=== PATIENT | male | born 1960 | race Two or more races ===

== ENCOUNTER 2021-10-05 15:19 | Emergency (ER) | payer MEDICARE, MEDICAID ==
[~2021-10-05] VITALS: Ht 170.2 cm; Wt 106.6 kg
[2021-10-05 16:00] LABS: Basophils # (auto) 0 10 ^3/uL (0-0.2); Basophils % (auto) 0.3 % (0.0-2.0); Eosinophils # (auto) 0.2 10 ^3/uL (0-0.8); Eosinophils % (auto) 1.8 % (0.0-7.0); Hematocrit 35.6 % (41.0-53.0); Hemoglobin 11.6 g/dL (13.5-17.5); Lymphocytes # (auto) 1.6 10 ^3/uL (0.4-5.4); Lymphocytes % (auto) 15.9 % (10.0-50.0); Mean Corpuscular Hemoglobin 29.5 pg (28.0-32.0); Mean Corpuscular Hgb Conc. 32.6 g/dL (32.0-36.0); Mean Corpuscular Volume 90.5 fL (80.0-100.0); Monocytes # (auto) 1.1 10 ^3/uL (0-1.3); Monocytes % (auto) 10.2 % (0.0-12.0); Neutrophils # (auto) 7.4 10 ^3/uL (1.6-8.6); Neutrophils % (auto) 71.8 % (37.0-80.0); Red Blood Cells 3.93 10^6/uL (4.5-5.90); Red Cell Distribution Width 15.1 % (11.8-14.3); White Blood Cell 10.4 10^3/uL (4.4-10.8)
[2021-10-05 16:38] LABS: Calcium 8.1 mg/dL (8.5-10.1)
[2021-10-05 16:42] LABS: BUN/Creatinine Ratio 13.9; Bilirubin, Total 0.2 mg/dL (0.2-1.0); Total Protein 6.7 g/dL (6.4-8.2)
[2021-10-05 17:00] LABS: Potassium 5.8 mmol/L (3.5-5.1)
[2021-10-05] MEDS ORDERED: SODIUM CHLORIDE 0.9% 1,000 ML IV ONE (20:30)
[2021-10-05] MEDS ORDERED: ONDANSETRON HCL 4 MG/2 ML VIAL IV ONE (20:30)
[2021-10-05] MEDS ORDERED: MORPHINE SULFATE 4 MG/ML SYR/VIAL IV ONE (20:30)
[2021-10-05] MEDS ORDERED: KETOROLAC TROMETH 30 MG/ML 1ML VIAL IV ONE (20:30)
[2021-10-05 23:44] VITALS: BP 141/74
== END 2021-10-05 23:45 | disposition home or self-care (01) ==
LOC: ER 15:19
DX: N20.0 Calculus of kidney (principal)
CPT/HCPCS: 36415; 74176; 80053; 85025; 96361; 96374; 96375; 99284; J1885; J2270; J2405; J7030

== ENCOUNTER 2021-10-08 08:44 | Inpatient (IN) | payer MEDICARE, MEDICAID ==
[~2021-10-08] VITALS: Ht 170.2 cm; Wt 112.3 kg
[2021-10-08] MEDS ORDERED: cloNIDine HCL 0.1 MG TAB PO ONE (09:15)
[2021-10-08 09:35] LABS: Basophils # (auto) 0.1 10 ^3/uL (0-0.2); Basophils % (auto) 0.6 % (0.0-2.0); Eosinophils # (auto) 0.1 10 ^3/uL (0-0.8); Eosinophils % (auto) 0.4 % (0.0-7.0); Hematocrit 34.8 % (41.0-53.0); Hemoglobin 11.3 g/dL (13.5-17.5); Lymphocytes # (auto) 0.7 10 ^3/uL (0.4-5.4); Mean Corpuscular Hemoglobin 29.8 pg (28.0-32.0); Mean Corpuscular Hgb Conc. 32.6 g/dL (32.0-36.0); Mean Corpuscular Volume 91.4 fL (80.0-100.0); Monocytes # (auto) 0.9 10 ^3/uL (0-1.3); Monocytes % (auto) 6.7 % (0.0-12.0); Neutrophils # (auto) 11.6 10 ^3/uL (1.6-8.6); Neutrophils % (auto) 87.3 % (37.0-80.0); Red Blood Cells 3.81 10^6/uL (4.5-5.90); Red Cell Distribution Width 14.9 % (11.8-14.3); White Blood Cell 13.3 10^3/uL (4.4-10.8)
[2021-10-08 09:54] LABS: Albumin 2.8 g/dL (3.4-5.0); Calcium 8.3 mg/dL (8.5-10.1)
[2021-10-08 09:57] LABS: BUN/Creatinine Ratio 12.3; Bilirubin, Total 0.4 mg/dL (0.2-1.0); Total Protein 7.2 g/dL (6.4-8.2)
[2021-10-08 10:11] LABS: Potassium 6.3 mmol/L (3.5-5.1)
[2021-10-08] MEDS ORDERED: ALBUTEROL SULF 2.5 MG/0.5ML(0.5%) NEB SOLN NEB ONE (10:45)
[2021-10-08] MEDS ORDERED: SODIUM ZIRCONIUM CYCL 10 GM PAK PO ONE ×2 (10:45→21:30)
[2021-10-08] MEDS ORDERED: DEXTROSE (50%) 50ML SYRG IV ONE ×2 (10:45→21:30)
[2021-10-08] MEDS ORDERED: FUROSEMIDE 20 MG/2 ML VIAL IV ONE ×2 (10:45→21:30)
[2021-10-08] MEDS ORDERED: CALCIUM GLUC 1,000mg/50ml-NS 50 ML IV ONE ×2 (10:45→21:30)
[2021-10-08] MEDS ORDERED: InsuLIN REG 1unit/0.01ml Soln (100units/ml) IV ONE ×2 (10:45→21:30)
[2021-10-08] MEDS ORDERED: SODIUM BICARBONATE 8.4% INJ 50ML SYRINGE IV ONE ×2 (10:45→21:30)
[2021-10-08] MEDS ORDERED: HYDROcodone-ACET 5/325MG TAB PO PRN (14:30)
[2021-10-08] MEDS ORDERED: MORPHINE SULFATE INJECTION 2 MG/ML SYRG IV PRN (14:30)
[2021-10-08] MEDS: amLODIPine BESYLATE 5 MG TAB PO SCH (14:30)
[2021-10-08] MEDS ORDERED: DEXTROSE (50%) 50ML SYRG IV PRN (14:30)
[2021-10-08] MEDS ORDERED: ONDANSETRON HCL 4 MG/2 ML VIAL IV PRN (14:30)
[2021-10-08] MEDS ORDERED: SODIUM BICARBONATE 50ML VIAL 50 ML in SOD CHL 0.45% 1,000 ML IV SCH (14:30)
[2021-10-08] MEDS: cefTRIAXone 1GM/50ML D5W 50 ML IV SCH (14:30)
[2021-10-08] MEDS ORDERED: ACETAMINOPHEN 500 MG TAB PO PRN (14:30)
[2021-10-08] MEDS: TAMSULOSIN HYDROCHLORIDE 0.4 MG CAP PO SCH ×2 (14:30→18:23)
[2021-10-08] MEDS ORDERED: NITROGLYCERIN 0.4 MG SL TAB SL PRN (14:30)
[2021-10-08] MEDS: SODIUM BICARBONATE 50ML VIAL 50 ML in SOD CHL 0.45% 1,000 ML IV SCH (16:45)
[2021-10-08] MEDS: ACCU-CHEK COMFORT CURVE STRIP VI SCH ×2 (17:00→22:24)
[2021-10-08] MEDS ORDERED: MANNITOL FTV 25% 12.5 GM/50 ML 50 ML IV ONE (17:30)
[2021-10-08] MEDS: InsuLIN REG 1unit/0.01ml Soln (100units/ml) SC SCH ×2 (18:01→22:30)
[2021-10-08 18:15] LABS: BUN/Creatinine Ratio 12.7; Calcium 8.2 mg/dL (8.5-10.1)
[2021-10-08 18:55] LABS: Potassium 5.7 mmol/L (3.5-5.1)
[2021-10-08] MEDS: LABETALOL HCL 5 MG/ML 4ML SYRINGE IV PRN (19:43)
[2021-10-08 20:12] LABS: Urine Bacteria FEW /hpf (None Seen); Urine Blood 1+ /uL (Negative); Urine Specific Gravity 1.011 (1.001-1.035); Urine WBC 1 /hpf (0 - 3)
[2021-10-08 20:26] LABS: Protein, Urine 162.6 mg/dL (0.0-11.9)
[2021-10-08 21:45] VITALS: BP 149/75
[2021-10-09] VITALS (7 sets, daily range): BP systolic 121–156; BP diastolic 66–104
[2021-10-09] MEDS ORDERED: SODIUM BICARBONATE 8.4% INJ 50ML SYRINGE ONE ×2 (00:02→02:46)
[2021-10-09] MEDS: SODIUM BICARBONATE 50ML VIAL 50 ML in SOD CHL 0.45% 1,000 ML IV SCH ×3 (00:39→23:18)
[2021-10-09] MEDS ORDERED: INSU70IN3 SC ×2 (04:55)
[2021-10-09] MEDS ORDERED: METO25TA5 PO (04:55)
[2021-10-09] MEDS ORDERED: ASPI-543 PO (04:55)
[2021-10-09] MEDS ORDERED: ESOM40CA39 PO (04:55)
[2021-10-09] MEDS ORDERED: HYDR50TA15 PO (04:55)
[2021-10-09] MEDS ORDERED: TERA5CAP42 PO (04:55)
[2021-10-09] MEDS ORDERED: ATOR20TA50 PO (04:55)
[2021-10-09] MEDS ORDERED: FURO1TAB31 PO (04:55)
[2021-10-09] MEDS ORDERED: ALLO100T PO (04:55)
[2021-10-09] MEDS ORDERED: SODI650T PO (04:55)
[2021-10-09] MEDS ORDERED: CHOL20007 PO (04:55)
[2021-10-09] MEDS ORDERED: PERCOT PO (04:55)
[2021-10-09 05:22] LABS: Basophils # (auto) 0.1 10 ^3/uL (0-0.2); Basophils % (auto) 0.5 % (0.0-2.0); Eosinophils # (auto) 0.2 10 ^3/uL (0-0.8); Eosinophils % (auto) 1.4 % (0.0-7.0); Hematocrit 32.8 % (41.0-53.0); Hemoglobin 10.7 g/dL (13.5-17.5); Lymphocytes # (auto) 0.9 10 ^3/uL (0.4-5.4); Lymphocytes % (auto) 8.9 % (10.0-50.0); Mean Corpuscular Hemoglobin 29.4 pg (28.0-32.0); Mean Corpuscular Hgb Conc. 32.5 g/dL (32.0-36.0); Mean Corpuscular Volume 90.4 fL (80.0-100.0); Monocytes # (auto) 1.1 10 ^3/uL (0-1.3); Monocytes % (auto) 10.1 % (0.0-12.0); Neutrophils # (auto) 8.4 10 ^3/uL (1.6-8.6); Neutrophils % (auto) 79.1 % (37.0-80.0); Nucleated Red Blood Cells % 0.1 %; Red Blood Cells 3.63 10^6/uL (4.5-5.90); White Blood Cell 10.6 10^3/uL (4.4-10.8)
[2021-10-09 05:32] LABS: Albumin 2.6 g/dL (3.4-5.0); Calcium 8.4 mg/dL (8.5-10.1); Potassium 5.5 mmol/L (3.5-5.1)
[2021-10-09 05:39] LABS: Bilirubin, Total 0.3 mg/dL (0.2-1.0)
[2021-10-09] MEDS: ACCU-CHEK COMFORT CURVE STRIP VI SCH ×4 (06:07→22:01)
[2021-10-09] MEDS: InsuLIN REG 1unit/0.01ml Soln (100units/ml) SC SCH ×4 (06:15→22:07)
[2021-10-09] MEDS: cefTRIAXone 1GM/50ML D5W 50 ML IV SCH (09:10)
[2021-10-09] MEDS: amLODIPine BESYLATE 5 MG TAB PO SCH (09:11)
[2021-10-09] MEDS ORDERED: MANNITOL FTV 25% 12.5 GM/50 ML 50 ML IV ONE (10:00)
[2021-10-09] MEDS ORDERED: SODIUM ZIRCONIUM CYCL 10 GM PAK PO ONE ×2 (10:30→21:30)
[2021-10-09] MEDS ORDERED: guaiFENesin-DM 100/10mg/5ml SYR PO PRN (15:30)
[2021-10-09] MEDS: TAMSULOSIN HYDROCHLORIDE 0.4 MG CAP PO SCH (16:47)
[2021-10-09 16:50] LABS: BUN/Creatinine Ratio 12.1; Calcium 7.8 mg/dL (8.5-10.1)
[2021-10-09 17:03] LABS: Potassium 5.9 mmol/L (3.5-5.1)
[2021-10-09] MEDS ORDERED: CALCIUM GLUC 1,000mg/50ml-NS 50 ML IV ONE (17:15)
[2021-10-09] MEDS ORDERED: DEXTROSE (50%) 50ML SYRG IV ONE (17:15)
[2021-10-09] MEDS ORDERED: InsuLIN REG 1unit/0.01ml Soln (100units/ml) IV ONE (17:15)
[2021-10-09 19:34] LABS: BUN/Creatinine Ratio 12.2; Calcium 7.8 mg/dL (8.5-10.1)
[2021-10-09 20:20] LABS: Potassium 5.6 mmol/L (3.5-5.1)
[2021-10-09] MEDS ORDERED: SODIUM POLYSTYRENE SULF 15GM/60ml SUSP or POWDER PO ONE (21:00)
[2021-10-09] MEDS ORDERED: ALBUTEROL SULF 2.5 MG/0.5ML(0.5%) NEB SOLN NEB ONE (21:00)
[2021-10-09] MEDS ORDERED: SODIUM BICARBONATE 8.4 % INJ 50ML VIAL IV ONE (23:12)
[2021-10-10 05:31] VITALS: BP 162/74
[2021-10-10] MEDS: ACCU-CHEK COMFORT CURVE STRIP VI SCH ×4 (05:52→22:22)
[2021-10-10] MEDS: InsuLIN REG 1unit/0.01ml Soln (100units/ml) SC SCH ×4 (06:07→22:22)
[2021-10-10 06:59] LABS: Basophils # (auto) 0.1 10 ^3/uL (0-0.2); Basophils % (auto) 0.5 % (0.0-2.0); Eosinophils # (auto) 0.1 10 ^3/uL (0-0.8); Eosinophils % (auto) 1.1 % (0.0-7.0); Hemoglobin 10.4 g/dL (13.5-17.5); Lymphocytes # (auto) 0.8 10 ^3/uL (0.4-5.4); Mean Corpuscular Hemoglobin 29.2 pg (28.0-32.0); Mean Corpuscular Hgb Conc. 32.5 g/dL (32.0-36.0); Mean Corpuscular Volume 89.7 fL (80.0-100.0); Monocytes # (auto) 1.2 10 ^3/uL (0-1.3); Monocytes % (auto) 10.7 % (0.0-12.0); Neutrophils # (auto) 9.3 10 ^3/uL (1.6-8.6); Neutrophils % (auto) 80.7 % (37.0-80.0); Nucleated Red Blood Cells % 0.1 %; Red Blood Cells 3.57 10^6/uL (4.5-5.90); Red Cell Distribution Width 14.4 % (11.8-14.3); White Blood Cell 11.6 10^3/uL (4.4-10.8)
[2021-10-10 07:13] LABS: Albumin 2.6 g/dL (3.4-5.0); Calcium 7.8 mg/dL (8.5-10.1); Potassium 5.3 mmol/L (3.5-5.1)
[2021-10-10 07:15] LABS: INR 1.16 (0.9-1.15); Partial Thromboplastin Time 30.9 sec (23.6-33.0)
[2021-10-10 07:17] LABS: BUN/Creatinine Ratio 12.7; Bilirubin, Total 0.3 mg/dL (0.2-1.0); Total Protein 6.3 g/dL (6.4-8.2)
[2021-10-10 07:20] VITALS: BP 161/77
[2021-10-10] MEDS: amLODIPine BESYLATE 5 MG TAB PO SCH (08:08)
[2021-10-10] MEDS: cefTRIAXone 1GM/50ML D5W 50 ML IV SCH (08:08)
[2021-10-10] MEDS: MORPHINE SULFATE INJECTION 2 MG/ML SYRG IV PRN (11:41)
[2021-10-10] MEDS ORDERED: DEXTROSE (50%) 50ML SYRG IV ONE (12:45)
[2021-10-10] MEDS ORDERED: InsuLIN REG 1unit/0.01ml Soln (100units/ml) SC ONE (12:45)
[2021-10-10] MEDS ORDERED: CALCIUM GLUC 1,000mg/50ml-NS 50 ML IV ONE (12:45)
[2021-10-10] MEDS: TAMSULOSIN HYDROCHLORIDE 0.4 MG CAP PO SCH (17:49)
[2021-10-10] MEDS: LABETALOL HCL 5 MG/ML 4ML SYRINGE IV PRN (17:50)
[2021-10-10 20:00] VITALS: BP 148/64
[2021-10-11 05:00] VITALS: BP 145/70
[2021-10-11] MEDS: InsuLIN REG 1unit/0.01ml Soln (100units/ml) SC SCH ×4 (06:28→22:29)
[2021-10-11] MEDS: amLODIPine BESYLATE 5 MG TAB PO SCH (08:01)
[2021-10-11] MEDS: cefTRIAXone 1GM/50ML D5W 50 ML IV SCH (08:01)
[2021-10-11 09:00] VITALS: BP 164/80
[2021-10-11] MEDS ORDERED: MIDAZOLAM HCL 2MG/2ML 2ml VIAL (1mg/ml) ONE (09:38)
[2021-10-11] MEDS ORDERED: fentaNYL CITRATE 100 MCG/2 ML VL ONE (09:38)
[2021-10-11] MEDS ORDERED: LIDOCAINE 2%HCL (LOCAL ANESTH.) INJ 20ML MDV ONE (09:39)
[2021-10-11] MEDS ORDERED: IODIXANOL 320MG/ML 100ML BTL IV ONE (10:09)
[2021-10-11] MEDS: ACCU-CHEK COMFORT CURVE STRIP VI SCH ×3 (12:00→22:26)
[2021-10-11] MEDS ORDERED: FUROSEMIDE 40 MG/4 ML VIAL IV ONE (12:30)
[2021-10-11 12:43] VITALS: BP 143/68
[2021-10-11] MEDS: MORPHINE SULFATE INJECTION 2 MG/ML SYRG IV PRN (15:57)
[2021-10-11 17:17] VITALS: BP 158/72
[2021-10-11] MEDS: TAMSULOSIN HYDROCHLORIDE 0.4 MG CAP PO SCH (17:23)
[2021-10-11 18:48] VITALS: BP 148/54
[2021-10-11 22:00] VITALS: BP 152/66
[2021-10-12 00:08] VITALS: BP 152/66
[2021-10-12] MEDS: InsuLIN REG 1unit/0.01ml Soln (100units/ml) SC SCH ×3 (06:51→17:24)
[2021-10-12] MEDS: ACCU-CHEK COMFORT CURVE STRIP VI SCH ×3 (07:50→17:23)
[2021-10-12 09:00] VITALS: BP 179/79
[2021-10-12] MEDS: cefTRIAXone 1GM/50ML D5W 50 ML IV SCH (09:18)
[2021-10-12] MEDS: amLODIPine BESYLATE 5 MG TAB PO SCH (09:18)
[2021-10-12 09:37] LABS: Basophils # (auto) 0 10 ^3/uL (0-0.2); Basophils % (auto) 0.4 % (0.0-2.0); Eosinophils # (auto) 0.2 10 ^3/uL (0-0.8); Eosinophils % (auto) 1.8 % (0.0-7.0); Hematocrit 30.6 % (41.0-53.0); Hemoglobin 10.1 g/dL (13.5-17.5); Lymphocytes % (auto) 10.2 % (10.0-50.0); Mean Corpuscular Hemoglobin 29.7 pg (28.0-32.0); Mean Corpuscular Volume 90.1 fL (80.0-100.0); Monocytes % (auto) 10.4 % (0.0-12.0); Neutrophils # (auto) 7.7 10 ^3/uL (1.6-8.6); Neutrophils % (auto) 77.2 % (37.0-80.0); Nucleated Red Blood Cells % 0.1 %; Red Cell Distribution Width 14.3 % (11.8-14.3)
[2021-10-12] MEDS: SODIUM BICARBONATE 50ML VIAL 50 ML in SOD CHL 0.45% 1,000 ML IV SCH ×2 (10:19→15:15)
[2021-10-12 11:03] LABS: Calcium 8.4 mg/dL (8.5-10.1); Potassium 5.2 mmol/L (3.5-5.1)
[2021-10-12 11:05] LABS: BUN/Creatinine Ratio 13.4
[2021-10-12 13:00] VITALS: BP 142/112
[2021-10-12] MEDS: SODIUM BICARBONATE 8.4 % INJ 50ML VIAL IV ONE ×2 (15:15→15:37)
[2021-10-12] MEDS ORDERED: SODIUM CHLORIDE 0.9% 1,000 ML IV ONE (15:15)
[2021-10-12] MEDS ORDERED: SODIUM ZIRCONIUM CYCL 10 GM PAK PO ONE (15:15)
[2021-10-12] MEDS ORDERED: FUROSEMIDE 100 MG/10ML VIAL IV ONE (15:15)
[2021-10-12 17:00] VITALS: BP 171/78
[2021-10-12] MEDS ORDERED: cloNIDine HCL 0.1 MG TAB PO ONE (18:00)
[2021-10-12 18:10] VITALS: BP 145/96
[2021-10-12] MEDS: TAMSULOSIN HYDROCHLORIDE 0.4 MG CAP PO SCH (18:16)
[2021-10-12 19:35] VITALS: BP 149/90
== END 2021-10-12 19:45 | disposition home or self-care (01) | DRG 690 ==
LOC: ER 08:44 → TELE 14:20 → TELE-CENTR 21:36
PROVIDERS: ADMIT Nurse Practitioner Acute Care; ATTEND Internal Medicine
PROC: 0T9130Z Drainage of Left Kidney with Drainage Device, Percutaneous Approach (ICD-10-PCS; principal; 2021-10-11)
PROC: BT1DYZZ Fluoroscopy of Right Kidney, Ureter and Bladder using Other Contrast (ICD-10-PCS; 2021-10-11)
PROC: BT41ZZZ Ultrasonography of Right Kidney (ICD-10-PCS; 2021-10-11)
DX: N13.6 Pyonephrosis (principal); E44.0 Moderate protein-calorie malnutrition; I13.2 Hypertensive heart and chronic kidney disease with heart failure and with stage 5 chronic kidney disease, or end stage renal disease; N17.0 Acute kidney failure with tubular necrosis; N18.5 Chronic kidney disease, stage 5; E11.21 Type 2 diabetes mellitus with diabetic nephropathy; E87.5 Hyperkalemia; E11.65 Type 2 diabetes mellitus with hyperglycemia; D63.1 Anemia in chronic kidney disease; E11.22 Type 2 diabetes mellitus with diabetic chronic kidney disease; I50.9 Heart failure, unspecified; M54.50 Low back pain, unspecified; E66.01 Morbid (severe) obesity due to excess calories; F17.210 Nicotine dependence, cigarettes, uncomplicated; I25.10 Atherosclerotic heart disease of native coronary artery without angina pectoris; Z68.36 Body mass index [BMI] 36.0-36.9, adult; I25.2 Old myocardial infarction; Z87.442 Personal history of urinary calculi
CPT/HCPCS: 36415; 50432; 70450; 71045; 74176; 74425; 76775; 76942; 80048; 80053; 81001; 82306; 82570; 82962; 83036; 83735; 83970; 84100; 84132; 84156; 85025; 85610; 85730; 86850; 86900; 86901; 87040; 87086; 87340; 87426; 93005; 94640; 94644; 96365; 96366; 96367; 96368; 96372; 96375; 99152; 99153; 99291; C1729; G0378; J0696; J1815; J2250; J3490; Q9967

== ENCOUNTER 2021-10-16 04:39 | Emergency (ER) | payer MEDICARE, MEDICAID ==
[~2021-10-16] VITALS: Ht 170.2 cm; Wt 108.9 kg
[~2021-10-16 04:39] MED LIST: ALLO100T PO; ASPI-543 PO; ATOR20TA50 PO; CHOL20007 PO; ESOM40CA39 PO; FURO1TAB31 PO; HYDR50TA15 PO; INSU70IN3 SC; METO25TA5 PO; PERCOT PO; SODI650T PO; TERA5CAP42 PO
[2021-10-16 11:05] VITALS: BP 171/92
== END 2021-10-16 11:18 | disposition home or self-care (01) ==
LOC: ER 04:39
DX: T83.012A Breakdown (mechanical) of nephrostomy catheter, initial encounter (principal); I25.10 Atherosclerotic heart disease of native coronary artery without angina pectoris; E78.5 Hyperlipidemia, unspecified; I25.2 Old myocardial infarction; F17.210 Nicotine dependence, cigarettes, uncomplicated; I12.9 Hypertensive chronic kidney disease with stage 1 through stage 4 chronic kidney disease, or unspecified chronic kidney disease; E11.22 Type 2 diabetes mellitus with diabetic chronic kidney disease; N18.9 Chronic kidney disease, unspecified; Z79.899 Other long term (current) drug therapy; Z79.4 Long term (current) use of insulin; Z79.82 Long term (current) use of aspirin
CPT/HCPCS: 74176

== ENCOUNTER → 2022-04-12 | Outpatient (CLI) | payer MEDICARE, MEDICAID ==
[~2022-04-12] VITALS: Ht 170.2 cm; Wt 102.5 kg
[~2022-04-12] MED LIST changes: +ADENOSINE 86 MG in GIVE UN-DILUTED 0 ML IV ONE; +ADENOSINE 90 MG/30 ML INJ IV ONE
== END | disposition home or self-care (01) ==
LOC: Rad HDHVI 09:21
PROVIDERS: ATTEND Internal Medicine
DX: N18.4 Chronic kidney disease, stage 4 (severe) (principal); R06.02 Shortness of breath; I25.10 Atherosclerotic heart disease of native coronary artery without angina pectoris; I25.5 Ischemic cardiomyopathy; I10 Essential (primary) hypertension; E78.5 Hyperlipidemia, unspecified; E11.9 Type 2 diabetes mellitus without complications; R07.9 Chest pain, unspecified; I42.0 Dilated cardiomyopathy; I50.42 Chronic combined systolic (congestive) and diastolic (congestive) heart failure; R42 Dizziness and giddiness; F17.210 Nicotine dependence, cigarettes, uncomplicated
CPT/HCPCS: 78452; 93005; 96374; 96375; A9500; J0153

== ENCOUNTER 2022-06-19 10:09 | Inpatient (IN) | payer MEDICARE, MEDICAID ==
[~2022-06-19] VITALS: Ht 170.2 cm; Wt 107.5 kg
[~2022-06-19 10:09] MED LIST changes: -ADENOSINE 86 MG in GIVE UN-DILUTED 0 ML IV ONE; -ADENOSINE 90 MG/30 ML INJ IV ONE
[2022-06-19 12:18] LABS: Basophils # (auto) 0 10 ^3/uL (0-0.2); Basophils % (auto) 0.3 % (0.0-2.0); Eosinophils # (auto) 0 10 ^3/uL (0-0.8); Hematocrit 42.5 % (41.0-53.0); Hemoglobin 13.7 g/dL (13.5-17.5); Lymphocytes % (auto) 8.3 % (10.0-50.0); Mean Corpuscular Hemoglobin 28.6 pg (28.0-32.0); Mean Corpuscular Hgb Conc. 32.2 g/dL (32.0-36.0); Mean Corpuscular Volume 88.8 fL (80.0-100.0); Monocytes # (auto) 0.7 10 ^3/uL (0-1.3); Monocytes % (auto) 6.4 % (0.0-12.0); Neutrophils # (auto) 9.9 10 ^3/uL (1.6-8.6); Red Blood Cells 4.78 10^6/uL (4.5-5.90); Red Cell Distribution Width 14.6 % (11.8-14.3); White Blood Cell 11.6 10^3/uL (4.4-10.8)
[2022-06-19 12:29] LABS: Albumin 3.4 g/dL (3.4-5.0); Calcium 8.6 mg/dL (8.5-10.1); Magnesium 2.1 mg/dL (1.6-2.6); Potassium 4.4 mmol/L (3.5-5.1)
[2022-06-19 12:33] LABS: Bilirubin, Total 0.4 mg/dL (0.2-1.0); Total Protein 8.8 g/dL (6.4-8.2)
[2022-06-19] MEDS ORDERED: ENOXAPARIN SOD 120 MG/0.8 ML SYRINGE SC ONE (13:45)
[2022-06-19] MEDS ORDERED: NITROGLYCERIN 0.4 MG SL TAB SL PRN (17:45)
[2022-06-19] MEDS ORDERED: MORPHINE SULFATE INJ 2 MG/ml SYRG IV PRN (17:45)
[2022-06-19] MEDS ORDERED: HYDROcodone-ACET 5/325MG TAB PO PRN (17:45)
[2022-06-19] MEDS ORDERED: ONDANSETRON HCL 4 MG/2 ML VIAL IM ONE (18:00)
[2022-06-19] MEDS: SODIUM CHLORIDE 0.9% 1,000 ML IV SCH (18:34)
[2022-06-19] MEDS ORDERED: DEXTROSE (50%) 50ML SYRG IV PRN (18:45)
[2022-06-19] MEDS ORDERED: ERGOCALCIFEROL 50,000 UNIT(1.25MG) CAP PO SCH (18:45)
[2022-06-19] MEDS ORDERED: SODIUM CHLORIDE 0.9% 1,000 ML IV ONE (19:30)
[2022-06-19] MEDS ORDERED: NITROGLYCERIN 0.4MG/HR TOPICAL PATCH TD ONE (19:30)
[2022-06-19 19:34] LABS: Magnesium 2.1 mg/dL (1.6-2.6); Phosphorus 4.4 mg/dL (2.5-4.90)
[2022-06-19] MEDS ORDERED: hydrALAZINE HCL 20 MG/ML VL IV ONE (19:45)
[2022-06-19 20:46] LABS: INR 1.18 (0.9-1.15)
[2022-06-19 21:26] LABS: Urine Amorphous Crystal FEW /hpf (None Seen); Urine Bacteria FEW /hpf (None Seen); Urine Blood 2+ /uL (Negative); Urine Mucus FEW (None Seen); Urine Specific Gravity 1.016 (1.001-1.035); Urine WBC 19 /hpf (0 - 3)
[2022-06-19] MEDS ORDERED: ATORVASTATIN 20 MG TAB PO SCH (22:00)
[2022-06-19] MEDS: METOPROLOL TARTRATE 25 MG TAB PO SCH (22:12)
[2022-06-19] MEDS: hydrALAZINE HCL 25 MG TAB PO SCH (22:12)
[2022-06-20] MEDS: ONDANSETRON HCL 4 MG/2 ML VIAL IV PRN ×3 (00:26→10:38)
[2022-06-20] MEDS: InsuLIN REG 1unit/0.01ml Soln (100units/ml) SC SCH ×5 (01:50→23:33)
[2022-06-20] MEDS: ACCU-CHEK COMFORT CURVE STRIP VI SCH ×5 (01:51→23:32)
[2022-06-20 04:36] LABS: Basophils # (auto) 0.1 10 ^3/uL (0-0.2); Basophils % (auto) 0.6 % (0.0-2.0); Eosinophils # (auto) 0 10 ^3/uL (0-0.8); Eosinophils % (auto) 0.3 % (0.0-7.0); Hematocrit 38.3 % (41.0-53.0); Hemoglobin 12.7 g/dL (13.5-17.5); Lymphocytes # (auto) 1.5 10 ^3/uL (0.4-5.4); Lymphocytes % (auto) 11.7 % (10.0-50.0); Mean Corpuscular Hemoglobin 29.3 pg (28.0-32.0); Mean Corpuscular Hgb Conc. 33.3 g/dL (32.0-36.0); Mean Corpuscular Volume 88.2 fL (80.0-100.0); Monocytes # (auto) 1.2 10 ^3/uL (0-1.3); Monocytes % (auto) 9.8 % (0.0-12.0); Neutrophils # (auto) 9.9 10 ^3/uL (1.6-8.6); Neutrophils % (auto) 77.6 % (37.0-80.0); Red Blood Cells 4.35 10^6/uL (4.5-5.90); Red Cell Distribution Width 14.4 % (11.8-14.3); White Blood Cell 12.7 10^3/uL (4.4-10.8)
[2022-06-20 05:05] LABS: Albumin 3.2 g/dL (3.4-5.0); Calcium 8.1 mg/dL (8.5-10.1); Potassium 4.6 mmol/L (3.5-5.1)
[2022-06-20 05:12] LABS: BUN/Creatinine Ratio 20.9; Bilirubin, Total 0.4 mg/dL (0.2-1.0)
[2022-06-20] MEDS: hydrALAZINE HCL 25 MG TAB PO SCH ×3 (05:53→22:27)
[2022-06-20] MEDS: DOCUSATE SOD 100 MG CAP PO PRN (06:15)
[2022-06-20] MEDS: SODIUM CHLORIDE 0.9% 1,000 ML IV SCH ×2 (08:03→23:32)
[2022-06-20] MEDS: SODIUM BICARBONATE 650 MG TAB PO SCH ×3 (08:11→17:24)
[2022-06-20] MEDS ORDERED: PANTOPRAZOLE 40 MG/10 ML VIAL INJ IV SCH (10:00)
[2022-06-20] MEDS ORDERED: ENOXAPARIN SOD 120 MG/0.8 ML SYRINGE SC SCH (10:00)
[2022-06-20] MEDS ORDERED: ASPirin 81 mg TAB PO ONE (10:30)
[2022-06-20] MEDS ORDERED: ISOSORBIDE MONONITRATE ER 60 MG TAB PO ONE (10:30)
[2022-06-20] MEDS ORDERED: amLODIPine BESYLATE 5 MG TAB PO ONE (10:30)
[2022-06-20] MEDS: METOPROLOL TARTRATE 25 MG TAB PO SCH ×2 (10:39→22:25)
[2022-06-20] MEDS: ERGOCALCIFEROL 50,000 UNIT(1.25MG) CAP PO SCH ×2 (11:19→12:50)
[2022-06-20] MEDS ORDERED: hydrALAZINE HCL 25 MG TAB PO PRN (12:00)
[2022-06-20 14:03] LABS: Anion Gap 9 (5-15); Carbon Dioxide 17 mmol/L (21-32); Chloride 112 mmol/L (98-107); Glucose 132 mg/dL (74-106); Potassium 5.1 mmol/L (3.5-5.1); Sodium 138 mmol/L (136-145)
[2022-06-20 14:04] LABS: BUN/Creatinine Ratio 20.3; Calcium 7.7 mg/dL (8.5-10.1); GFR African American 17 mL/min; GFR Non-African American 14 mL/min
[2022-06-20 14:08] LABS: Blood Urea Nitrogen 90 mg/dL (7-18)
[2022-06-20] MEDS ORDERED: ALBUTEROL SULF 2.5 MG/0.5ML(0.5%) NEB SOLN NEB PRN (14:15)
[2022-06-20 14:24] VITALS: BP 152/68
[2022-06-20] MEDS ORDERED: ONDANSETRON HCL 4 MG/2 ML VIAL IV PRN (16:30)
[2022-06-20 16:49] VITALS: BP 156/63
[2022-06-20 22:00] VITALS: BP 124/57
[2022-06-20] MEDS: ATORVASTATIN 20 MG TAB PO SCH (22:26)
[2022-06-21 05:00] VITALS: BP 152/68
[2022-06-21] MEDS: InsuLIN REG 1unit/0.01ml Soln (100units/ml) SC SCH ×3 (05:10→18:15)
[2022-06-21] MEDS: ACCU-CHEK COMFORT CURVE STRIP VI SCH ×3 (05:11→18:12)
[2022-06-21] MEDS: hydrALAZINE HCL 25 MG TAB PO SCH ×3 (05:37→21:50)
[2022-06-21] MEDS: SODIUM CHLORIDE 0.9% 1,000 ML IV SCH (05:38)
[2022-06-21 05:45] LABS: Basophils # (auto) 0.1 10 ^3/uL (0-0.2); Basophils % (auto) 0.6 % (0.0-2.0); Eosinophils # (auto) 0.1 10 ^3/uL (0-0.8); Eosinophils % (auto) 1.1 % (0.0-7.0); Hematocrit 36.5 % (41.0-53.0); Hemoglobin 11.6 g/dL (13.5-17.5); Lymphocytes # (auto) 1.7 10 ^3/uL (0.4-5.4); Lymphocytes % (auto) 15.8 % (10.0-50.0); Mean Corpuscular Hemoglobin 28.7 pg (28.0-32.0); Mean Corpuscular Hgb Conc. 31.8 g/dL (32.0-36.0); Mean Corpuscular Volume 90.3 fL (80.0-100.0); Monocytes # (auto) 1.1 10 ^3/uL (0-1.3); Monocytes % (auto) 10.8 % (0.0-12.0); Neutrophils # (auto) 7.6 10 ^3/uL (1.6-8.6); Neutrophils % (auto) 71.7 % (37.0-80.0); Red Blood Cells 4.04 10^6/uL (4.5-5.90); Red Cell Distribution Width 14.3 % (11.8-14.3); White Blood Cell 10.6 10^3/uL (4.4-10.8)
[2022-06-21 05:56] LABS: BUN/Creatinine Ratio 20.4; Calcium 7.9 mg/dL (8.5-10.1); Potassium 4.8 mmol/L (3.5-5.1)
[2022-06-21] MEDS: ISOSORBIDE MONONITRATE ER 60 MG TAB PO SCH (09:06)
[2022-06-21] MEDS: cefTRIAXone 1GM/50ML D5W 50 ML IV SCH (09:06)
[2022-06-21] MEDS: SODIUM BICARBONATE 650 MG TAB PO SCH ×3 (09:07→18:26)
[2022-06-21] MEDS: amLODIPine BESYLATE 5 MG TAB PO SCH (09:07)
[2022-06-21] MEDS: ASPirin 81 mg TAB PO SCH (09:07)
[2022-06-21] MEDS: METOPROLOL TARTRATE 25 MG TAB PO SCH ×2 (09:08→21:52)
[2022-06-21] MEDS: ENOXAPARIN SOD 30 MG/0.3 ML SYRINGE SC SCH (09:08)
[2022-06-21 12:27] VITALS: BP 130/63
[2022-06-21] MEDS ORDERED: SODIUM CHLORIDE 0.9% 2,000 ML IV ONE (15:15)
[2022-06-21] MEDS ORDERED: FUROSEMIDE 100 MG/10ML VIAL IV ONE (15:15)
[2022-06-21 16:53] VITALS: BP 117/64
[2022-06-21] MEDS: TAMSULOSIN HYDROCHLORIDE 0.4 MG CAP PO SCH (18:26)
[2022-06-21] MEDS: ATORVASTATIN 20 MG TAB PO SCH (21:50)
[2022-06-22] MEDS: ACCU-CHEK COMFORT CURVE STRIP VI SCH ×5 (00:46→23:49)
[2022-06-22] MEDS: InsuLIN REG 1unit/0.01ml Soln (100units/ml) SC SCH ×5 (00:47→23:59)
[2022-06-22] MEDS: hydrALAZINE HCL 25 MG TAB PO SCH ×3 (05:21→21:43)
[2022-06-22 05:29] VITALS: BP 137/46
[2022-06-22 06:46] LABS: BUN/Creatinine Ratio 19.4; Calcium 7.7 mg/dL (8.5-10.1); Magnesium 1.9 mg/dL (1.6-2.6); Potassium 4.3 mmol/L (3.5-5.1)
[2022-06-22] MEDS: SODIUM CHLORIDE 0.9% 1,000 ML IV SCH ×2 (07:00→17:15)
[2022-06-22 09:00] VITALS: BP 145/59
[2022-06-22] MEDS: SODIUM BICARBONATE 650 MG TAB PO SCH ×3 (09:01→18:02)
[2022-06-22] MEDS: cefTRIAXone 1GM/50ML D5W 50 ML IV SCH (09:01)
[2022-06-22] MEDS: METOPROLOL TARTRATE 25 MG TAB PO SCH ×2 (09:06→22:00)
[2022-06-22] MEDS: ISOSORBIDE MONONITRATE ER 60 MG TAB PO SCH (09:06)
[2022-06-22] MEDS: ASPirin 81 mg TAB PO SCH (09:07)
[2022-06-22] MEDS: amLODIPine BESYLATE 5 MG TAB PO SCH (09:07)
[2022-06-22] MEDS: ENOXAPARIN SOD 30 MG/0.3 ML SYRINGE SC SCH (09:08)
[2022-06-22] MEDS: MECLIZINE HCL 25 MG TAB PO SCH ×2 (12:59→21:44)
[2022-06-22 13:00] VITALS: BP 136/56
[2022-06-22 16:41] VITALS: BP 133/63
[2022-06-22] MEDS: TAMSULOSIN HYDROCHLORIDE 0.4 MG CAP PO SCH (18:02)
[2022-06-22] MEDS: ATORVASTATIN 20 MG TAB PO SCH (21:42)
[2022-06-22 22:00] VITALS: BP 140/61
[2022-06-22] MEDS: DOCUSATE SOD 100 MG CAP PO PRN (23:49)
[2022-06-23 05:00] VITALS: BP 146/61
[2022-06-23] MEDS: InsuLIN REG 1unit/0.01ml Soln (100units/ml) SC SCH ×3 (06:00→18:05)
[2022-06-23] MEDS: ACCU-CHEK COMFORT CURVE STRIP VI SCH ×3 (06:06→18:03)
[2022-06-23] MEDS: hydrALAZINE HCL 25 MG TAB PO SCH ×3 (06:07→21:50)
[2022-06-23 06:10] LABS: Calcium 7.5 mg/dL (8.5-10.1); Magnesium 1.8 mg/dL (1.6-2.6); Potassium 4.5 mmol/L (3.5-5.1)
[2022-06-23 06:12] LABS: BUN/Creatinine Ratio 18.6
[2022-06-23] MEDS: SODIUM BICARBONATE 650 MG TAB PO SCH ×3 (08:43→17:49)
[2022-06-23] MEDS: ASPirin 81 mg TAB PO SCH (08:43)
[2022-06-23] MEDS: cefTRIAXone 1GM/50ML D5W 50 ML IV SCH (08:43)
[2022-06-23] MEDS: MECLIZINE HCL 25 MG TAB PO SCH ×2 (08:44→21:49)
[2022-06-23] MEDS: METOPROLOL TARTRATE 25 MG TAB PO SCH ×2 (08:44→21:50)
[2022-06-23] MEDS: ISOSORBIDE MONONITRATE ER 60 MG TAB PO SCH (08:44)
[2022-06-23] MEDS: amLODIPine BESYLATE 5 MG TAB PO SCH (08:46)
[2022-06-23] MEDS: ENOXAPARIN SOD 30 MG/0.3 ML SYRINGE SC SCH ×2 (08:47→08:50)
[2022-06-23 09:06] VITALS: BP 152/62
[2022-06-23 10:06] VITALS: BP 152/62
[2022-06-23 16:29] VITALS: BP 139/58
[2022-06-23] MEDS: TAMSULOSIN HYDROCHLORIDE 0.4 MG CAP PO SCH (17:49)
[2022-06-23] MEDS: SODIUM CHLORIDE 0.9% 1,000 ML IV SCH (19:55)
[2022-06-23] MEDS ORDERED: SODIUM CHLORIDE 0.9% 1,000 ML IV SCH (21:30)
[2022-06-23] MEDS: ATORVASTATIN 20 MG TAB PO SCH (21:50)
[2022-06-23] MEDS: DOCUSATE SOD 100 MG CAP PO PRN (21:51)
[2022-06-23 22:00] VITALS: BP 142/53
[2022-06-24] MEDS: InsuLIN REG 1unit/0.01ml Soln (100units/ml) SC SCH ×6 (00:01→23:53)
[2022-06-24 05:00] VITALS: BP 156/66
[2022-06-24] MEDS: hydrALAZINE HCL 25 MG TAB PO SCH ×3 (05:54→22:10)
[2022-06-24] MEDS: ACCU-CHEK COMFORT CURVE STRIP VI SCH ×5 (06:00→23:37)
[2022-06-24 06:11] LABS: BUN/Creatinine Ratio 17.4; Calcium 7.7 mg/dL (8.5-10.1); Magnesium 1.9 mg/dL (1.6-2.6); Potassium 4.6 mmol/L (3.5-5.1)
[2022-06-24] MEDS ORDERED: AMOXICILLIN TRIHYDRATE 250 MG CAP PO ONE (07:00)
[2022-06-24 09:00] VITALS: BP 158/61
[2022-06-24] MEDS: MECLIZINE HCL 25 MG TAB PO SCH ×2 (09:10→22:10)
[2022-06-24] MEDS: ASPirin 81 mg TAB PO SCH (09:10)
[2022-06-24] MEDS: SODIUM BICARBONATE 650 MG TAB PO SCH ×3 (09:10→18:32)
[2022-06-24] MEDS: METOPROLOL TARTRATE 25 MG TAB PO SCH ×2 (09:12→22:00)
[2022-06-24] MEDS: amLODIPine BESYLATE 5 MG TAB PO SCH (09:13)
[2022-06-24] MEDS: ISOSORBIDE MONONITRATE ER 60 MG TAB PO SCH (09:13)
[2022-06-24] MEDS: ENOXAPARIN SOD 30 MG/0.3 ML SYRINGE SC SCH (09:14)
[2022-06-24 12:30] VITALS: BP 143/55
[2022-06-24] MEDS: DOCUSATE SOD 100 MG CAP PO PRN (15:11)
[2022-06-24] MEDS: AMOXICILLIN TRIHYDRATE 250 MG CAP PO SCH ×2 (15:11→22:09)
[2022-06-24 15:18] VITALS: BP 130/44
[2022-06-24 17:00] VITALS: BP 149/60
[2022-06-24] MEDS ORDERED: ISOS60TA24 PO (18:19)
[2022-06-24] MEDS ORDERED: FURO40TA4 PO (18:19)
[2022-06-24] MEDS ORDERED: CAR125T OR (18:19)
[2022-06-24] MEDS ORDERED: BENA40TA8 PO (18:19)
[2022-06-24] MEDS: TAMSULOSIN HYDROCHLORIDE 0.4 MG CAP PO SCH (18:32)
[2022-06-24 22:00] VITALS: BP 148/55
[2022-06-24] MEDS: ATORVASTATIN 20 MG TAB PO SCH (22:10)
[2022-06-25 05:00] VITALS: BP 165/61
[2022-06-25] MEDS: ACCU-CHEK COMFORT CURVE STRIP VI SCH ×4 (05:49→23:29)
[2022-06-25] MEDS: InsuLIN REG 1unit/0.01ml Soln (100units/ml) SC SCH ×4 (05:49→23:31)
[2022-06-25] MEDS: AMOXICILLIN TRIHYDRATE 250 MG CAP PO SCH ×3 (05:50→22:03)
[2022-06-25] MEDS: hydrALAZINE HCL 25 MG TAB PO SCH ×3 (05:51→22:00)
[2022-06-25 08:31] LABS: Albumin 2.7 g/dL (3.4-5.0); Calcium 7.9 mg/dL (8.5-10.1)
[2022-06-25 08:36] LABS: BUN/Creatinine Ratio 17.4; Bilirubin, Total 0.3 mg/dL (0.2-1.0); Total Protein 5.8 g/dL (6.4-8.2)
[2022-06-25 08:47] LABS: Basophils # (auto) 0 10 ^3/uL (0-0.2); Basophils % (auto) 0.5 % (0.0-2.0); Eosinophils # (auto) 0.2 10 ^3/uL (0-0.8); Eosinophils % (auto) 3.1 % (0.0-7.0); Hemoglobin 10.5 g/dL (13.5-17.5); Lymphocytes # (auto) 1.4 10 ^3/uL (0.4-5.4); Mean Corpuscular Hemoglobin 29.1 pg (28.0-32.0); Mean Corpuscular Hgb Conc. 32.8 g/dL (32.0-36.0); Mean Corpuscular Volume 88.8 fL (80.0-100.0); Monocytes # (auto) 0.9 10 ^3/uL (0-1.3); Monocytes % (auto) 10.8 % (0.0-12.0); Neutrophils # (auto) 5.6 10 ^3/uL (1.6-8.6); Neutrophils % (auto) 68.6 % (37.0-80.0); Nucleated Red Blood Cells % 0.1 %; Red Blood Cells 3.61 10^6/uL (4.5-5.90); White Blood Cell 8.1 10^3/uL (4.4-10.8)
[2022-06-25 09:01] VITALS: BP 117/60
[2022-06-25] MEDS: SODIUM BICARBONATE 650 MG TAB PO SCH ×3 (10:15→17:55)
[2022-06-25] MEDS: MECLIZINE HCL 25 MG TAB PO SCH ×2 (10:15→22:03)
[2022-06-25] MEDS: ASPirin 81 mg TAB PO SCH (10:15)
[2022-06-25] MEDS: FUROSEMIDE 20 MG TAB PO SCH (10:16)
[2022-06-25] MEDS: amLODIPine BESYLATE 5 MG TAB PO SCH (10:17)
[2022-06-25] MEDS: METOPROLOL TARTRATE 25 MG TAB PO SCH ×2 (10:17→22:00)
[2022-06-25] MEDS: ISOSORBIDE MONONITRATE ER 60 MG TAB PO SCH (10:18)
[2022-06-25] MEDS: ENOXAPARIN SOD 30 MG/0.3 ML SYRINGE SC SCH (10:18)
[2022-06-25 12:30] VITALS: BP 139/52
[2022-06-25 17:30] VITALS: BP 153/57
[2022-06-25] MEDS: TAMSULOSIN HYDROCHLORIDE 0.4 MG CAP PO SCH (17:55)
[2022-06-25 22:00] VITALS: BP 111/54
[2022-06-25] MEDS: ATORVASTATIN 20 MG TAB PO SCH (22:04)
[2022-06-26 05:00] VITALS: BP 123/51
[2022-06-26] MEDS: InsuLIN REG 1unit/0.01ml Soln (100units/ml) SC SCH ×2 (05:51→12:35)
[2022-06-26] MEDS: ACCU-CHEK COMFORT CURVE STRIP VI SCH ×2 (05:51→12:00)
[2022-06-26] MEDS: AMOXICILLIN TRIHYDRATE 250 MG CAP PO SCH ×2 (05:52→13:08)
[2022-06-26] MEDS: hydrALAZINE HCL 25 MG TAB PO SCH ×2 (05:52→13:08)
[2022-06-26 06:13] LABS: Potassium 4.9 mmol/L (3.5-5.1)
[2022-06-26 06:19] LABS: BUN/Creatinine Ratio 18.3; Calcium 7.9 mg/dL (8.5-10.1); Magnesium 2.3 mg/dL (1.6-2.6)
[2022-06-26] MEDS: SODIUM BICARBONATE 650 MG TAB PO SCH ×2 (07:46→12:30)
[2022-06-26 08:42] VITALS: BP 168/54
[2022-06-26] MEDS: ISOSORBIDE MONONITRATE ER 60 MG TAB PO SCH (09:54)
[2022-06-26] MEDS: FUROSEMIDE 20 MG TAB PO SCH (09:54)
[2022-06-26] MEDS: amLODIPine BESYLATE 5 MG TAB PO SCH (09:55)
[2022-06-26] MEDS: MECLIZINE HCL 25 MG TAB PO SCH (09:55)
[2022-06-26] MEDS: METOPROLOL TARTRATE 25 MG TAB PO SCH (09:55)
[2022-06-26] MEDS: ENOXAPARIN SOD 30 MG/0.3 ML SYRINGE SC SCH (09:56)
[2022-06-26] MEDS: ASPirin 81 mg TAB PO SCH (09:56)
[2022-06-26 12:00] VITALS: BP 174/60
[2022-06-26] MEDS ORDERED: BISACODYL 5 MG EC TAB PO ONE (12:15)
[2022-06-26] MEDS ORDERED: POLYETHYLENE GLYCOL 17 GM PWDR PO ONE (12:15)
[2022-06-26] MEDS ORDERED: NIFEdipine 10 MG CAP PO ONE (12:15)
[2022-06-26 17:17] VITALS: BP 126/46
== END 2022-06-26 20:50 | DRG 64 ==
LOC: ER 10:09 → TELE 18:18 → TELE-CENTR 06-20 13:52
PROVIDERS: ADMIT Nurse Practitioner Family; ATTEND Internal Medicine
DX: I63.81 Other cerebral infarction due to occlusion or stenosis of small artery (principal); I21.A1 Myocardial infarction type 2; N17.0 Acute kidney failure with tubular necrosis; E44.0 Moderate protein-calorie malnutrition; I13.2 Hypertensive heart and chronic kidney disease with heart failure and with stage 5 chronic kidney disease, or end stage renal disease; N18.5 Chronic kidney disease, stage 5; N30.00 Acute cystitis without hematuria; R65.10 Systemic inflammatory response syndrome (SIRS) of non-infectious origin without acute organ dysfunction; E55.9 Vitamin D deficiency, unspecified; D63.8 Anemia in other chronic diseases classified elsewhere; E66.01 Morbid (severe) obesity due to excess calories; E78.5 Hyperlipidemia, unspecified; E86.0 Dehydration; E87.5 Hyperkalemia; F17.210 Nicotine dependence, cigarettes, uncomplicated; G47.33 Obstructive sleep apnea (adult) (pediatric); H81.10 Benign paroxysmal vertigo, unspecified ear; I25.10 Atherosclerotic heart disease of native coronary artery without angina pectoris; I25.2 Old myocardial infarction; K59.00 Constipation, unspecified; M10.9 Gout, unspecified; N40.0 Benign prostatic hyperplasia without lower urinary tract symptoms; E11.65 Type 2 diabetes mellitus with hyperglycemia; Z20.822 Contact with and (suspected) exposure to COVID-19; N20.0 Calculus of kidney; Z79.4 Long term (current) use of insulin; Z79.82 Long term (current) use of aspirin; Z79.899 Other long term (current) drug therapy; Z82.49 Family history of ischemic heart disease and other diseases of the circulatory system; Z83.3 Family history of diabetes mellitus; Z87.440 Personal history of urinary (tract) infections; Z87.442 Personal history of urinary calculi; Z95.5 Presence of coronary angioplasty implant and graft; Z68.35 Body mass index [BMI] 35.0-35.9, adult
CPT/HCPCS: 36415; 70450; 70551; 71045; 74176; 76700; 80048; 80053; 80061; 81001; 82306; 82962; 83036; 83605; 83690; 83735; 83880; 83970; 84100; 84443; 84484; 85025; 85610; 87086; 87088; 87186; 87340; 92610; 93005; 93886; 94660; 96361; 96372; 96374; 97110; 97116; 97163; 97530; C9113; G0378; J0696; J1815; J2405

== ENCOUNTER 2022-08-02 11:48 | Inpatient (IN) | payer MEDICARE, MEDICAID ==
[~2022-08-02] VITALS: Ht 170.2 cm; Wt 97.0 kg
[~2022-08-02 11:48] MED LIST changes: -ALLO100T PO; -ASPI-543 PO; -ATOR20TA50 PO; +BENA40TA8 PO; +CAR125T OR; -CHOL20007 PO; -ESOM40CA39 PO; -FURO1TAB31 PO; +FURO40TA4 PO; -HYDR50TA15 PO; +ISOS60TA24 PO; -PERCOT PO; -SODI650T PO; -TERA5CAP42 PO
[2022-08-02 13:20] LABS: Basophils # (auto) 0.2 10 ^3/uL (0-0.2); Basophils % (auto) 1.6 % (0.0-2.0); Eosinophils # (auto) 0.2 10 ^3/uL (0-0.8); Eosinophils % (auto) 2.3 % (0.0-7.0); Hemoglobin 12.1 g/dL (13.5-17.5); Lymphocytes # (auto) 1.5 10 ^3/uL (0.4-5.4); Lymphocytes % (auto) 15.8 % (10.0-50.0); Mean Corpuscular Hemoglobin 30.4 pg (28.0-32.0); Mean Corpuscular Hgb Conc. 33.8 g/dL (32.0-36.0); Monocytes # (auto) 0.7 10 ^3/uL (0-1.3); Monocytes % (auto) 7.8 % (0.0-12.0); Neutrophils # (auto) 6.8 10 ^3/uL (1.6-8.6); Neutrophils % (auto) 72.5 % (37.0-80.0); Red Cell Distribution Width 14.7 % (11.8-14.3); White Blood Cell 9.4 10^3/uL (4.4-10.8)
[2022-08-02 13:37] LABS: INR 1.03 (0.9-1.15); Partial Thromboplastin Time 30.4 sec (24.6-33.4)
[2022-08-02 13:43] LABS: Albumin 2.8 g/dL (3.4-5.0); BUN/Creatinine Ratio 15.8; Calcium 7.7 mg/dL (8.5-10.1)
[2022-08-02 13:46] LABS: Bilirubin, Total 0.2 mg/dL (0.2-1.0); Total Protein 6.4 g/dL (6.4-8.2)
[2022-08-02 13:50] LABS: Potassium 6.2 mmol/L (3.5-5.1)
[2022-08-02] MEDS ORDERED: ASPirin 81 mg TAB PO ONE (14:15)
[2022-08-02] MEDS ORDERED: InsuLIN REG 1unit/0.01ml Soln (100units/ml) IV ONE (15:15)
[2022-08-02] MEDS ORDERED: DEXTROSE (50%) 50ML SYRG IV ONE (15:15)
[2022-08-02] MEDS ORDERED: HYDROcodone-ACET 5/325MG TAB PO PRN (15:30)
[2022-08-02] MEDS ORDERED: NITROGLYCERIN 0.4 MG SL TAB SL PRN (15:30)
[2022-08-02] MEDS ORDERED: ONDANSETRON HCL 4 MG/2 ML VIAL IV PRN (15:30)
[2022-08-02] MEDS ORDERED: DOCUSATE SOD 100 MG CAP PO PRN (15:30)
[2022-08-02] MEDS ORDERED: MORPHINE SULFATE INJ 2 MG/ml SYRG IV PRN (15:30)
[2022-08-02] MEDS ORDERED: ACETAMINOPHEN 325 MG TAB PO PRN (15:30)
[2022-08-02] MEDS ORDERED: PANTOPRAZOLE 40 MG/10 ML VIAL INJ IV ONE (15:45)
[2022-08-02] MEDS ORDERED: DEXTROSE (50%) 50ML SYRG IV PRN (16:00)
[2022-08-02] MEDS ORDERED: FUROSEMIDE 20 MG/2 ML VIAL IV ONE (16:30)
[2022-08-02] MEDS: cloNIDine HCL 0.1 MG TAB PO ONE ×2 (16:44→17:20)
[2022-08-02] MEDS: ACCU-CHEK COMFORT CURVE STRIP VI SCH ×2 (16:52→22:00)
[2022-08-02] MEDS: InsuLIN REG 1unit/0.01ml Soln (100units/ml) SC SCH ×2 (16:52→22:52)
[2022-08-02 17:09] LABS: Cholesterol 218 mg/dL (< 200)
[2022-08-02 17:12] LABS: HDL Cholesterol 43 mg/dL (40-59); Triglycerides 449 mg/dL (< 150)
[2022-08-02 17:51] LABS: Alcohol, Urine < 3.0 mg/dL (0-10); Amphetamine Screen, Urine NEGATIVE (NEGATIVE); Barbiturate Scree,Urine NEGATIVE (NEGATIVE); Benzodiazephine Screen, Urine NEGATIVE (NEGATIVE); Cannabinoid Screen, Urine NEGATIVE (NEGATIVE); Cocaine Screen, Urine NEGATIVE (NEGATIVE); Opiate Scree,Urine NEGATIVE (NEGATIVE); Phencyclidine Screen, Urine NEGATIVE (NEGATIVE)
[2022-08-02] MEDS ORDERED: BUMETANIDE 2.5mg/10ml (0.25 mg/ml) INJ IV ONE (18:15)
[2022-08-02 18:18] LABS: Urine Bacteria FEW /hpf (None Seen); Urine WBC 13 /hpf (0 - 3)
[2022-08-02] MEDS: SODIUM ZIRCONIUM CYCL 10 GM PAK PO SCH ×2 (18:27→22:52)
[2022-08-02 18:28] LABS: Urine Blood 1+ /uL (Negative); Urine Specific Gravity 1.015 (1.001-1.035)
[2022-08-02] MEDS: hydrALAZINE HCL 20 MG/ML VL IV PRN (18:28)
[2022-08-03 05:37] LABS: Basophils # (auto) 0.1 10 ^3/uL (0-0.2); Basophils % (auto) 0.6 % (0.0-2.0); Eosinophils # (auto) 0.3 10 ^3/uL (0-0.8); Eosinophils % (auto) 3.4 % (0.0-7.0); Hematocrit 37.5 % (41.0-53.0); Hemoglobin 12.1 g/dL (13.5-17.5); Lymphocytes # (auto) 1.5 10 ^3/uL (0.4-5.4); Lymphocytes % (auto) 16.7 % (10.0-50.0); Mean Corpuscular Hemoglobin 29.1 pg (28.0-32.0); Mean Corpuscular Hgb Conc. 32.3 g/dL (32.0-36.0); Monocytes # (auto) 0.8 10 ^3/uL (0-1.3); Monocytes % (auto) 9.2 % (0.0-12.0); Neutrophils # (auto) 6.4 10 ^3/uL (1.6-8.6); Neutrophils % (auto) 70.1 % (37.0-80.0); Red Blood Cells 4.17 10^6/uL (4.5-5.90); Red Cell Distribution Width 14.6 % (11.8-14.3); White Blood Cell 9.2 10^3/uL (4.4-10.8)
[2022-08-03 05:45] LABS: Albumin 2.8 g/dL (3.4-5.0); Calcium 8.4 mg/dL (8.5-10.1); Potassium 4.9 mmol/L (3.5-5.1)
[2022-08-03 05:48] LABS: BUN/Creatinine Ratio 16.2
[2022-08-03 05:51] LABS: Bilirubin, Total 0.3 mg/dL (0.2-1.0)
[2022-08-03] MEDS: SODIUM ZIRCONIUM CYCL 10 GM PAK PO SCH ×3 (06:03→22:19)
[2022-08-03] MEDS: hydrALAZINE HCL 20 MG/ML VL IV PRN (06:10)
[2022-08-03] MEDS: ACCU-CHEK COMFORT CURVE STRIP VI SCH ×4 (06:17→22:21)
[2022-08-03] MEDS: InsuLIN REG 1unit/0.01ml Soln (100units/ml) SC SCH ×4 (06:22→22:00)
[2022-08-03] MEDS ORDERED: FUROSEMIDE 20 MG/2 ML VIAL IV SCH ×2 (10:00)
[2022-08-03] MEDS ORDERED: PANTOPRAZOLE 40 MG/10 ML VIAL INJ IV SCH (10:00)
[2022-08-03] MEDS: ENOXAPARIN SOD 100 MG/1 ML SYRINGE SC SCH (11:08)
[2022-08-03] MEDS ORDERED: ISOSORBIDE MONONITRATE ER 60 MG TAB PO ONE (13:30)
[2022-08-03] MEDS ORDERED: CARVEDILOL 12.5 MG TAB PO ONE (13:30)
[2022-08-03] MEDS: FUROSEMIDE 100 MG/10ML VIAL IV SCH ×2 (14:23→16:00)
[2022-08-03] MEDS: hydrALAZINE HCL 25 MG TAB PO SCH ×2 (14:25→22:30)
[2022-08-03 16:50] VITALS: BP 135/61
[2022-08-03] MEDS ORDERED: FUROSEMIDE 100 MG/10ML VIAL IV SCH (18:00)
[2022-08-03 22:00] VITALS: BP 140/46
[2022-08-03] MEDS: CARVEDILOL 12.5 MG TAB PO SCH (22:30)
[2022-08-04 05:00] VITALS: BP 131/68
[2022-08-04] MEDS: SODIUM ZIRCONIUM CYCL 10 GM PAK PO SCH (06:48)
[2022-08-04] MEDS: ACCU-CHEK COMFORT CURVE STRIP VI SCH ×2 (06:49→11:49)
[2022-08-04] MEDS: hydrALAZINE HCL 25 MG TAB PO SCH (06:49)
[2022-08-04] MEDS: InsuLIN REG 1unit/0.01ml Soln (100units/ml) SC SCH ×2 (06:55→11:49)
[2022-08-04 08:46] VITALS: BP 153/71
[2022-08-04] MEDS ORDERED: ISOSORBIDE MONONITRATE ER 60 MG TAB PO SCH (10:00)
[2022-08-04] MEDS ORDERED: FURO1TAB32 PO (10:08)
[2022-08-04] MEDS: ENOXAPARIN SOD 100 MG/1 ML SYRINGE SC SCH (10:15)
[2022-08-04] MEDS: CARVEDILOL 12.5 MG TAB PO SCH (10:19)
[2022-08-04] MEDS: FUROSEMIDE 100 MG/10ML VIAL IV SCH (10:19)
[2022-08-04 11:52] VITALS: BP 151/76
== END 2022-08-04 13:51 | disposition home or self-care (01) | DRG 189 ==
LOC: ER 11:48 → TELE 15:36 → TELE-WESTW 08-03 16:05
PROVIDERS: ADMIT Nurse Practitioner Family; ATTEND Internal Medicine
DX: J96.01 Acute respiratory failure with hypoxia (principal); N18.4 Chronic kidney disease, stage 4 (severe); I13.0 Hypertensive heart and chronic kidney disease with heart failure and stage 1 through stage 4 chronic kidney disease, or unspecified chronic kidney disease; I50.22 Chronic systolic (congestive) heart failure; I25.10 Atherosclerotic heart disease of native coronary artery without angina pectoris; G47.33 Obstructive sleep apnea (adult) (pediatric); D63.1 Anemia in chronic kidney disease; I16.0 Hypertensive urgency; E11.22 Type 2 diabetes mellitus with diabetic chronic kidney disease; Z20.822 Contact with and (suspected) exposure to COVID-19; E66.01 Morbid (severe) obesity due to excess calories; E78.5 Hyperlipidemia, unspecified; E87.5 Hyperkalemia; F17.210 Nicotine dependence, cigarettes, uncomplicated; N40.0 Benign prostatic hyperplasia without lower urinary tract symptoms; Z79.4 Long term (current) use of insulin; Z68.33 Body mass index [BMI] 33.0-33.9, adult; Z87.442 Personal history of urinary calculi; Z95.5 Presence of coronary angioplasty implant and graft
CPT/HCPCS: 36415; 71046; 76775; 78582; 80053; 80061; 80307; 81001; 82306; 82962; 83036; 83880; 83970; 84100; 84132; 84484; 85025; 85379; 85610; 85730; 87426; 93005; 93970; C9113; G0378; J1815

== ENCOUNTER 2022-09-12 16:10 | Inpatient (IN) | payer MEDICARE, MEDICAID ==
[~2022-09-12] VITALS: Ht 170.2 cm; Wt 103.3 kg
[~2022-09-12 16:10] MED LIST changes: +FURO1TAB32 PO; -FURO40TA4 PO
[2022-09-12 18:22] LABS: Basophils # (auto) 0 10 ^3/uL (0-0.2); Basophils % (auto) 0.3 % (0.0-2.0); Eosinophils # (auto) 0.4 10 ^3/uL (0-0.8); Eosinophils % (auto) 4.6 % (0.0-7.0); Hematocrit 35.2 % (41.0-53.0); Hemoglobin 11.5 g/dL (13.5-17.5); Lymphocytes # (auto) 1.5 10 ^3/uL (0.4-5.4); Lymphocytes % (auto) 18.1 % (10.0-50.0); Mean Corpuscular Hemoglobin 29.8 pg (28.0-32.0); Mean Corpuscular Hgb Conc. 32.7 g/dL (32.0-36.0); Mean Corpuscular Volume 91.2 fL (80.0-100.0); Monocytes # (auto) 0.9 10 ^3/uL (0-1.3); Monocytes % (auto) 10.7 % (0.0-12.0); Neutrophils # (auto) 5.6 10 ^3/uL (1.6-8.6); Neutrophils % (auto) 66.3 % (37.0-80.0); Nucleated Red Blood Cells % 0.1 %; Red Blood Cells 3.86 10^6/uL (4.5-5.90); White Blood Cell 8.5 10^3/uL (4.4-10.8)
[2022-09-12 18:31] LABS: Albumin 3.1 g/dL (3.4-5.0); Magnesium 1.9 mg/dL (1.6-2.6)
[2022-09-12 18:34] LABS: Bilirubin, Total 0.2 mg/dL (0.2-1.0); Total Protein 6.6 g/dL (6.4-8.2)
[2022-09-12 18:48] LABS: Potassium 6.9 mmol/L (3.5-5.1)
[2022-09-12] MEDS ORDERED: DEXTROSE (50%) 50ML SYRG IV ONE (19:15)
[2022-09-12] MEDS ORDERED: InsuLIN REG 1unit/0.01ml Soln (100units/ml) IV ONE (19:15)
[2022-09-12] MEDS ORDERED: CALCIUM GLUC 1,000mg/50ml-NS 50 ML IV ONE (19:15)
[2022-09-12] MEDS ORDERED: ASPirin 325 MG TAB PO ONE (20:00)
[2022-09-12] MEDS ORDERED: MORPHINE SULFATE INJ 2 MG/ml SYRG IV PRN (21:00)
[2022-09-12] MEDS ORDERED: NITROGLYCERIN 0.4 MG SL TAB SL PRN (21:00)
[2022-09-12 21:56] LABS: Cholesterol 175 mg/dL (< 200); Triglycerides 118 mg/dL (< 150)
[2022-09-12 21:59] LABS: HDL Cholesterol 45 mg/dL (40-59); LDL Cholesterol 122 mg/dL (< 100)
[2022-09-12] MEDS: SODIUM CHLOR 0.9% PF (SALINE LOCK) 10ML VIAL/SYR IV SCH (22:04)
[2022-09-13 02:39] LABS: Urine Bacteria FEW /hpf (None Seen); Urine Blood TRACE /uL (Negative); Urine Specific Gravity 1.011 (1.001-1.035); Urine WBC 12 /hpf (0 - 3); Urine WBC Clumps PRESENT /hpf (None Seen)
[2022-09-13] MEDS ORDERED: NIFEdipine ER 30 MG TAB PO ONE (04:15)
[2022-09-13 04:59] LABS: Basophils # (auto) 0.1 10 ^3/uL (0-0.2); Basophils % (auto) 1.1 % (0.0-2.0); Eosinophils # (auto) 0.4 10 ^3/uL (0-0.8); Eosinophils % (auto) 4.7 % (0.0-7.0); Hematocrit 36.6 % (41.0-53.0); Hemoglobin 11.6 g/dL (13.5-17.5); Lymphocytes # (auto) 2.3 10 ^3/uL (0.4-5.4); Mean Corpuscular Hemoglobin 28.8 pg (28.0-32.0); Mean Corpuscular Hgb Conc. 31.7 g/dL (32.0-36.0); Monocytes # (auto) 0.9 10 ^3/uL (0-1.3); Monocytes % (auto) 11.1 % (0.0-12.0); Neutrophils # (auto) 4.4 10 ^3/uL (1.6-8.6); Neutrophils % (auto) 55.1 % (37.0-80.0); Nucleated Red Blood Cells % 0.1 %; Red Blood Cells 4.03 10^6/uL (4.5-5.90); Red Cell Distribution Width 14.9 % (11.8-14.3); White Blood Cell 8.1 10^3/uL (4.4-10.8)
[2022-09-13 05:13] LABS: Albumin 3.1 g/dL (3.4-5.0); Calcium 8.7 mg/dL (8.5-10.1)
[2022-09-13 05:15] LABS: BUN/Creatinine Ratio 14.9
[2022-09-13 05:25] LABS: Bilirubin, Total 0.3 mg/dL (0.2-1.0); Total Protein 7.3 g/dL (6.4-8.2)
[2022-09-13 05:34] LABS: Potassium 6.4 mmol/L (3.5-5.1)
[2022-09-13] MEDS ORDERED: SODIUM ZIRCONIUM CYCL 10 GM PAK PO ONE ×2 (06:00)
[2022-09-13] MEDS ORDERED: DEXTROSE (50%) 50ML SYRG IV ONE ×3 (06:00→15:15)
[2022-09-13] MEDS ORDERED: InsuLIN REG 1unit/0.01ml Soln (100units/ml) IV ONE ×3 (06:00→15:15)
[2022-09-13] MEDS ORDERED: CALCIUM GLUC 1,000mg/50ml-NS 50 ML IV ONE ×2 (06:00)
[2022-09-13] MEDS: SODIUM CHLOR 0.9% PF (SALINE LOCK) 10ML VIAL/SYR IV SCH ×3 (06:03→22:06)
[2022-09-13] MEDS: ASPirin 81 mg TAB PO SCH (11:25)
[2022-09-13 14:59] LABS: Phosphorus 4.7 mg/dL (2.5-4.90); Uric Acid 5.9 mg/dL (3.5-7.2)
[2022-09-13 15:02] LABS: Potassium 6.2 mmol/L (3.5-5.1)
[2022-09-13] MEDS ORDERED: SODIUM BICARBONATE 8.4 % INJ 50ML VIAL IV ONE (15:15)
[2022-09-13] MEDS ORDERED: BUMETANIDE 2.5mg/10ml (0.25 mg/ml) INJ IV ONE (15:15)
[2022-09-13] MEDS ORDERED: ALBUTEROL SULF 2.5 MG/0.5ML(0.5%) NEB SOLN NEB ONE (15:15)
[2022-09-13] MEDS: SODIUM ZIRCONIUM CYCL 10 GM PAK PO SCH ×2 (15:37→21:41)
[2022-09-13 17:40] VITALS: BP 180/69
[2022-09-13] MEDS: FUROSEMIDE 40 MG TAB PO SCH (21:42)
[2022-09-13 22:00] VITALS: BP 145/63
[2022-09-14 05:00] VITALS: BP 143/71
[2022-09-14 05:51] LABS: Hematocrit 33.2 % (41.0-53.0); Hemoglobin 10.7 g/dL (13.5-17.5); Mean Corpuscular Hemoglobin 29.7 pg (28.0-32.0); Mean Corpuscular Hgb Conc. 32.2 g/dL (32.0-36.0); Mean Corpuscular Volume 92.2 fL (80.0-100.0); Red Cell Distribution Width 14.6 % (11.8-14.3); White Blood Cell 8.8 10^3/uL (4.4-10.8)
[2022-09-14 05:53] LABS: Basophils % (manual) 0 (0.0-2.0); Blast Cells 0; Metamyelocytes % 0; Myelocytes % 0; Promyelocytes % 0; Reactive Lymphocytes 0
[2022-09-14] MEDS: SODIUM CHLOR 0.9% PF (SALINE LOCK) 10ML VIAL/SYR IV SCH ×2 (06:00→13:43)
[2022-09-14] MEDS: SODIUM ZIRCONIUM CYCL 10 GM PAK PO SCH (06:00)
[2022-09-14 09:00] VITALS: BP 123/86
[2022-09-14 09:18] LABS: BUN/Creatinine Ratio 12.8; Calcium 8.1 mg/dL (8.5-10.1)
[2022-09-14 09:30] LABS: Potassium 5.6 mmol/L (3.5-5.1)
[2022-09-14] MEDS ORDERED: SODIUM ZIRCONIUM CYCL 10 GM PAK PO SCH (09:30)
[2022-09-14 09:45] LABS: Band Neutrophils % (manual) 5; Eosinophils % (manual) 1 (0-7); Lymphocytes % (manual) 26 (10.0-50.0); Monocytes % (manual) 5 (0-12)
[2022-09-14] MEDS ORDERED: ISOSORBIDE MONONITRATE ER 60 MG TAB PO SCH (10:00)
[2022-09-14] MEDS ORDERED: CARVEDILOL 12.5 MG TAB PO SCH (10:00)
[2022-09-14] MEDS: FUROSEMIDE 40 MG TAB PO SCH (10:58)
[2022-09-14] MEDS: ASPirin 81 mg TAB PO SCH (10:58)
[2022-09-14] MEDS ORDERED: SODIUM BICARBONATE 50ML VIAL 50 ML in SOD CHL 0.45% 1,000 ML IV SCH (12:00)
[2022-09-14 12:30] VITALS: BP 154/72
[2022-09-14] MEDS ORDERED: AMLO-489 PO (13:32)
[2022-09-14] MEDS ORDERED: PATI1POW PO (13:34)
== END 2022-09-14 15:00 | disposition left against medical advice (07) | DRG 280 ==
LOC: ER 16:10 → TELE 20:49 → TELE-WESTW 09-13 17:31
PROVIDERS: ADMIT Nurse Practitioner Family; ATTEND Student in an Organized Health Care Education/Training Program
DX: I13.2 Hypertensive heart and chronic kidney disease with heart failure and with stage 5 chronic kidney disease, or end stage renal disease (principal); I21.A1 Myocardial infarction type 2; I50.21 Acute systolic (congestive) heart failure; E46 Unspecified protein-calorie malnutrition; N18.5 Chronic kidney disease, stage 5; E87.5 Hyperkalemia; D63.1 Anemia in chronic kidney disease; D56.9 Thalassemia, unspecified; E78.5 Hyperlipidemia, unspecified; E66.01 Morbid (severe) obesity due to excess calories; Z20.822 Contact with and (suspected) exposure to COVID-19; R74.01 Elevation of levels of liver transaminase levels; F17.210 Nicotine dependence, cigarettes, uncomplicated; I25.10 Atherosclerotic heart disease of native coronary artery without angina pectoris; Z68.35 Body mass index [BMI] 35.0-35.9, adult; Z53.29 Procedure and treatment not carried out because of patient's decision for other reasons; E11.22 Type 2 diabetes mellitus with diabetic chronic kidney disease; I50.9 Heart failure, unspecified; M10.9 Gout, unspecified; Z98.61 Coronary angioplasty status; Z79.4 Long term (current) use of insulin
CPT/HCPCS: 36415; 71045; 76775; 78582; 80048; 80053; 80061; 81001; 82306; 82962; 83036; 83735; 83880; 83970; 84100; 84132; 84443; 84484; 84550; 85007; 85025; 85027; 85379; 87340; 87426; 93005; 93306; 94644; 96365; 96366; 96375; 96376; G0378; J1815

== ENCOUNTER 2022-10-12 12:47 | Inpatient (IN) | payer OTHER, MEDICAID ==
[~2022-10-12] VITALS: Ht 170.2 cm; Wt 103.2 kg
[~2022-10-12 12:47] MED LIST changes: +AMLO-489 PO; +PATI1POW PO
[2022-10-12 13:42] LABS: Urine Bacteria FEW /hpf (None Seen); Urine Blood 1+ /uL (Negative); Urine Mucus FEW (None Seen); Urine Specific Gravity 1.015 (1.001-1.035); Urine WBC 46 /hpf (0 - 3); Urine WBC Clumps PRESENT /hpf (None Seen)
[2022-10-12 14:14] LABS: Basophils # (auto) 0.1 10 ^3/uL (0-0.2); Basophils % (auto) 0.9 % (0.0-2.0); Eosinophils # (auto) 0.2 10 ^3/uL (0-0.8); Eosinophils % (auto) 2.3 % (0.0-7.0); Hematocrit 35.6 % (41.0-53.0); Hemoglobin 11.5 g/dL (13.5-17.5); Lymphocytes # (auto) 1.2 10 ^3/uL (0.4-5.4); Lymphocytes % (auto) 12.9 % (10.0-50.0); Mean Corpuscular Hemoglobin 29.9 pg (28.0-32.0); Mean Corpuscular Hgb Conc. 32.4 g/dL (32.0-36.0); Mean Corpuscular Volume 92.2 fL (80.0-100.0); Monocytes # (auto) 0.8 10 ^3/uL (0-1.3); Monocytes % (auto) 9.3 % (0.0-12.0); Neutrophils # (auto) 6.7 10 ^3/uL (1.6-8.6); Neutrophils % (auto) 74.6 % (37.0-80.0); Red Blood Cells 3.86 10^6/uL (4.5-5.90); Red Cell Distribution Width 14.8 % (11.8-14.3); White Blood Cell 8.9 10^3/uL (4.4-10.8)
[2022-10-12 14:33] LABS: Albumin 3.1 g/dL (3.4-5.0); BUN/Creatinine Ratio 15.7; Calcium 8.1 mg/dL (8.5-10.1); Magnesium 2.1 mg/dL (1.6-2.6)
[2022-10-12 14:35] LABS: Bilirubin, Total 0.2 mg/dL (0.2-1.0)
[2022-10-12 15:40] LABS: Potassium 5.8 mmol/L (3.5-5.1)
[2022-10-12] MEDS ORDERED: SODIUM BICARBONATE 8.4 % INJ 50ML VIAL IV ONE (16:00)
[2022-10-12] MEDS ORDERED: CALCIUM GLUC 1,000mg/50ml-NS 50 ML IV ONE (16:00)
[2022-10-12] MEDS ORDERED: MORPHINE SULFATE INJ 2 MG/ml SYRG IV PRN (17:45)
[2022-10-12] MEDS ORDERED: TEMAZEPAM 15 MG CAP PO PRN (17:45)
[2022-10-12] MEDS ORDERED: ACETAMINOPHEN 325 MG TAB PO PRN (17:45)
[2022-10-12] MEDS ORDERED: HYDROcodone-ACET 5/325MG TAB PO PRN (17:45)
[2022-10-12] MEDS ORDERED: DOCUSATE SOD 100 MG CAP PO PRN (17:45)
[2022-10-12] MEDS ORDERED: DEXTROSE (50%) 50ML SYRG IV PRN (17:45)
[2022-10-12] MEDS ORDERED: LORazepam 0.5 MG TAB PO PRN (17:45)
[2022-10-12] MEDS: ONDANSETRON HCL 4 MG/2 ML VIAL IV PRN (23:31)
[2022-10-13] MEDS: InsuLIN REG 1unit/0.01ml Soln (100units/ml) SC SCH ×7 (00:13→21:21)
[2022-10-13] MEDS: ACCU-CHEK COMFORT CURVE STRIP VI SCH ×7 (00:13→21:19)
[2022-10-13] MEDS: hydrALAZINE HCL 20 MG/ML VL IV PRN ×2 (02:03→09:17)
[2022-10-13 06:42] LABS: Basophils # (auto) 0.1 10 ^3/uL (0-0.2); Basophils % (auto) 0.6 % (0.0-2.0); Eosinophils # (auto) 0.2 10 ^3/uL (0-0.8); Eosinophils % (auto) 2.3 % (0.0-7.0); Hematocrit 36.7 % (41.0-53.0); Hemoglobin 12.3 g/dL (13.5-17.5); Lymphocytes # (auto) 1.5 10 ^3/uL (0.4-5.4); Lymphocytes % (auto) 14.7 % (10.0-50.0); Mean Corpuscular Hemoglobin 30.4 pg (28.0-32.0); Mean Corpuscular Hgb Conc. 33.7 g/dL (32.0-36.0); Mean Corpuscular Volume 90.2 fL (80.0-100.0); Monocytes # (auto) 1.1 10 ^3/uL (0-1.3); Monocytes % (auto) 10.5 % (0.0-12.0); Neutrophils # (auto) 7.3 10 ^3/uL (1.6-8.6); Neutrophils % (auto) 71.9 % (37.0-80.0); Red Blood Cells 4.07 10^6/uL (4.5-5.90); Red Cell Distribution Width 14.7 % (11.8-14.3); White Blood Cell 10.2 10^3/uL (4.4-10.8)
[2022-10-13 07:19] LABS: Calcium 8.5 mg/dL (8.5-10.1)
[2022-10-13 08:06] LABS: BUN/Creatinine Ratio 18.6
[2022-10-13 08:07] LABS: Potassium 5.9 mmol/L (3.5-5.1)
[2022-10-13 08:30] VITALS: BP 167/60
[2022-10-13] MEDS ORDERED: SODIUM ZIRCONIUM CYCL 10 GM PAK PO ONE ×2 (09:00→09:45)
[2022-10-13 09:04] VITALS: BP 167/60
[2022-10-13] MEDS ORDERED: FURO20TA3 PO (09:40)
[2022-10-13] MEDS ORDERED: SODI325T PO (09:40)
[2022-10-13] MEDS ORDERED: DOXA1TAB28 PO (09:40)
[2022-10-13] MEDS ORDERED: LOSA25TA38 PO (09:41)
[2022-10-13] MEDS ORDERED: ESOM20CA PO (09:42)
[2022-10-13] MEDS ORDERED: PATI1POW PO (09:43)
[2022-10-13] MEDS ORDERED: cefTRIAXone 1GM/50ML D5W 50 ML IV SCH (10:00)
[2022-10-13] MEDS ORDERED: LOSARTAN POTASSIUM 50 MG TAB PO SCH (10:00)
[2022-10-13] MEDS ORDERED: BUMETANIDE 2.5mg/10ml (0.25 mg/ml) INJ IV ONE (11:30)
[2022-10-13] MEDS ORDERED: SODIUM BICARBONATE 8.4 % INJ 50ML VIAL IV ONE (11:30)
[2022-10-13 13:00] VITALS: BP 180/65
[2022-10-13] MEDS: hydrALAZINE HCL 25 MG TAB PO SCH ×3 (13:16→21:36)
[2022-10-13] MEDS: amLODIPine BESYLATE 5 MG TAB PO SCH (13:16)
[2022-10-13] MEDS: SODIUM ZIRCONIUM CYCL 10 GM PAK PO SCH ×2 (13:35→21:37)
[2022-10-13 17:03] VITALS: BP_SYST 150; BP_SYST 156; BP_DIAS 57; BP_DIAS 59
[2022-10-13] MEDS: FUROSEMIDE 40 MG TAB PO SCH (18:31)
[2022-10-13] MEDS: METOPROLOL TARTRATE 50 MG TAB PO SCH (21:36)
[2022-10-13] MEDS: DOXAZOSIN MESYL 2 MG TAB PO SCH (21:43)
[2022-10-13] MEDS: SODIUM BICARBONATE 650 MG TAB PO SCH (21:43)
[2022-10-13 22:09] VITALS: BP 149/68
[2022-10-13] MEDS: INSULIN LANTUS (GLARGINE) 1 /0.01ml (100units/ml) SC SCH (23:58)
[2022-10-14] MEDS: ACCU-CHEK COMFORT CURVE STRIP VI SCH ×7 (00:25→23:55)
[2022-10-14] MEDS: InsuLIN REG 1unit/0.01ml Soln (100units/ml) SC SCH ×7 (04:00→23:55)
[2022-10-14 04:45] VITALS: BP 126/51
[2022-10-14] MEDS: SODIUM BICARBONATE 650 MG TAB PO SCH ×3 (06:25→21:49)
[2022-10-14] MEDS: hydrALAZINE HCL 25 MG TAB PO SCH ×3 (06:25→21:49)
[2022-10-14] MEDS: FUROSEMIDE 40 MG TAB PO SCH ×2 (06:26→16:36)
[2022-10-14] MEDS: SODIUM ZIRCONIUM CYCL 10 GM PAK PO SCH ×3 (06:26→21:49)
[2022-10-14 09:00] VITALS: BP 150/59
[2022-10-14 09:32] LABS: Basophils # (auto) 0 10 ^3/uL (0-0.2); Basophils % (auto) 0.6 % (0.0-2.0); Eosinophils # (auto) 0.2 10 ^3/uL (0-0.8); Eosinophils % (auto) 3.1 % (0.0-7.0); Hematocrit 33.5 % (41.0-53.0); Lymphocytes # (auto) 1.2 10 ^3/uL (0.4-5.4); Lymphocytes % (auto) 15.6 % (10.0-50.0); Mean Corpuscular Hemoglobin 29.9 pg (28.0-32.0); Mean Corpuscular Hgb Conc. 32.8 g/dL (32.0-36.0); Mean Corpuscular Volume 91.1 fL (80.0-100.0); Monocytes # (auto) 0.8 10 ^3/uL (0-1.3); Monocytes % (auto) 10.1 % (0.0-12.0); Neutrophils # (auto) 5.3 10 ^3/uL (1.6-8.6); Neutrophils % (auto) 70.6 % (37.0-80.0); Red Blood Cells 3.68 10^6/uL (4.5-5.90); Red Cell Distribution Width 14.4 % (11.8-14.3); White Blood Cell 7.5 10^3/uL (4.4-10.8)
[2022-10-14] MEDS: amLODIPine BESYLATE 5 MG TAB PO SCH (10:00)
[2022-10-14 10:07] LABS: Albumin 2.9 g/dL (3.4-5.0); Calcium 7.9 mg/dL (8.5-10.1); Potassium 4.8 mmol/L (3.5-5.1)
[2022-10-14 10:10] LABS: BUN/Creatinine Ratio 16.2; Bilirubin, Total 0.3 mg/dL (0.2-1.0); Phosphorus 4.8 mg/dL (2.5-4.90)
[2022-10-14] MEDS: METOPROLOL TARTRATE 50 MG TAB PO SCH ×2 (10:41→21:50)
[2022-10-14 13:00] VITALS: BP 151/64
[2022-10-14 17:00] VITALS: BP 159/71
[2022-10-14 21:48] VITALS: BP 153/58
[2022-10-14] MEDS: DOXAZOSIN MESYL 2 MG TAB PO SCH (21:49)
[2022-10-14] MEDS: INSULIN LANTUS (GLARGINE) 1 /0.01ml (100units/ml) SC SCH (23:30)
[2022-10-15] MEDS: InsuLIN REG 1unit/0.01ml Soln (100units/ml) SC SCH ×6 (04:00→23:34)
[2022-10-15] MEDS: ACCU-CHEK COMFORT CURVE STRIP VI SCH ×6 (04:09→23:34)
[2022-10-15 05:03] VITALS: BP 152/57
[2022-10-15] MEDS: SODIUM BICARBONATE 650 MG TAB PO SCH ×3 (05:59→22:02)
[2022-10-15] MEDS: SODIUM ZIRCONIUM CYCL 10 GM PAK PO SCH (06:00)
[2022-10-15] MEDS: hydrALAZINE HCL 25 MG TAB PO SCH ×3 (06:00→22:01)
[2022-10-15 08:47] VITALS: BP 144/61
[2022-10-15 09:13] LABS: Basophils # (auto) 0 10 ^3/uL (0-0.2); Basophils % (auto) 0.6 % (0.0-2.0); Eosinophils # (auto) 0.2 10 ^3/uL (0-0.8); Eosinophils % (auto) 2.9 % (0.0-7.0); Hematocrit 34.1 % (41.0-53.0); Hemoglobin 11.2 g/dL (13.5-17.5); Lymphocytes # (auto) 1.5 10 ^3/uL (0.4-5.4); Lymphocytes % (auto) 19.4 % (10.0-50.0); Mean Corpuscular Hemoglobin 29.7 pg (28.0-32.0); Mean Corpuscular Hgb Conc. 32.8 g/dL (32.0-36.0); Mean Corpuscular Volume 90.5 fL (80.0-100.0); Monocytes # (auto) 0.8 10 ^3/uL (0-1.3); Monocytes % (auto) 9.8 % (0.0-12.0); Neutrophils # (auto) 5.2 10 ^3/uL (1.6-8.6); Neutrophils % (auto) 67.3 % (37.0-80.0); Red Blood Cells 3.76 10^6/uL (4.5-5.90); Red Cell Distribution Width 14.6 % (11.8-14.3); White Blood Cell 7.7 10^3/uL (4.4-10.8)
[2022-10-15 09:29] LABS: Albumin 2.9 g/dL (3.4-5.0); BUN/Creatinine Ratio 15.8; Calcium 7.7 mg/dL (8.5-10.1); Potassium 4.5 mmol/L (3.5-5.1)
[2022-10-15 09:36] LABS: Bilirubin, Total 0.4 mg/dL (0.2-1.0); Total Protein 6.2 g/dL (6.4-8.2)
[2022-10-15] MEDS: amLODIPine BESYLATE 5 MG TAB PO SCH (10:00)
[2022-10-15] MEDS: METOPROLOL TARTRATE 50 MG TAB PO SCH ×2 (10:00→22:02)
[2022-10-15 13:02] VITALS: BP 186/75
[2022-10-15 17:01] VITALS: BP 131/68
[2022-10-15 22:00] VITALS: BP 170/67
[2022-10-15] MEDS: DOXAZOSIN MESYL 2 MG TAB PO SCH (22:02)
[2022-10-15] MEDS: INSULIN LANTUS (GLARGINE) 1 /0.01ml (100units/ml) SC SCH (23:34)
[2022-10-16] MEDS: InsuLIN REG 1unit/0.01ml Soln (100units/ml) SC SCH ×5 (04:00→19:56)
[2022-10-16] MEDS: ACCU-CHEK COMFORT CURVE STRIP VI SCH ×5 (04:16→19:56)
[2022-10-16 05:00] VITALS: BP 118/58
[2022-10-16] MEDS: SODIUM BICARBONATE 650 MG TAB PO SCH ×3 (06:09→21:32)
[2022-10-16] MEDS: hydrALAZINE HCL 25 MG TAB PO SCH ×3 (06:10→21:33)
[2022-10-16 07:16] LABS: Basophils # (auto) 0 10 ^3/uL (0-0.2); Basophils % (auto) 0.6 % (0.0-2.0); Eosinophils # (auto) 0.3 10 ^3/uL (0-0.8); Eosinophils % (auto) 3.5 % (0.0-7.0); Hematocrit 33.7 % (41.0-53.0); Hemoglobin 10.8 g/dL (13.5-17.5); Lymphocytes # (auto) 1.5 10 ^3/uL (0.4-5.4); Lymphocytes % (auto) 19.5 % (10.0-50.0); Mean Corpuscular Hemoglobin 29.2 pg (28.0-32.0); Mean Corpuscular Volume 91.3 fL (80.0-100.0); Monocytes % (auto) 13.6 % (0.0-12.0); Neutrophils # (auto) 4.7 10 ^3/uL (1.6-8.6); Neutrophils % (auto) 62.8 % (37.0-80.0); Red Blood Cells 3.69 10^6/uL (4.5-5.90); Red Cell Distribution Width 14.3 % (11.8-14.3); White Blood Cell 7.4 10^3/uL (4.4-10.8)
[2022-10-16 07:28] LABS: Albumin 2.8 g/dL (3.4-5.0); BUN/Creatinine Ratio 16.7; Calcium 7.9 mg/dL (8.5-10.1); Potassium 4.2 mmol/L (3.5-5.1)
[2022-10-16 07:31] LABS: Bilirubin, Total 0.2 mg/dL (0.2-1.0); Total Protein 6.4 g/dL (6.4-8.2)
[2022-10-16 09:00] VITALS: BP 165/59
[2022-10-16] MEDS: METOPROLOL TARTRATE 50 MG TAB PO SCH ×2 (10:29→14:30)
[2022-10-16] MEDS: amLODIPine BESYLATE 5 MG TAB PO SCH (10:29)
[2022-10-16 13:00] VITALS: BP 121/49
[2022-10-16 17:00] VITALS: BP 155/64
[2022-10-16 17:00] LABS: Hepatitis A Ab IgM Negative; Hepatitis B Core IgM Negative
[2022-10-16 17:01] LABS: Hepatitis C Antibody Negative (Negative)
[2022-10-16] MEDS: DOXAZOSIN MESYL 2 MG TAB PO SCH (21:33)
[2022-10-16 22:00] VITALS: BP 156/72
[2022-10-16] MEDS: INSULIN LANTUS (GLARGINE) 1 /0.01ml (100units/ml) SC SCH (23:49)
[2022-10-17] VITALS (8 sets, daily range): BP systolic 118–150; BP diastolic 46–76
[2022-10-17] MEDS: ACCU-CHEK COMFORT CURVE STRIP VI SCH ×5 (00:04→21:31)
[2022-10-17] MEDS: InsuLIN REG 1unit/0.01ml Soln (100units/ml) SC SCH ×6 (03:39→21:25)
[2022-10-17] MEDS: SODIUM BICARBONATE 650 MG TAB PO SCH ×3 (06:11→21:28)
[2022-10-17] MEDS: hydrALAZINE HCL 25 MG TAB PO SCH ×3 (06:12→22:11)
[2022-10-17 07:10] LABS: Basophils # (auto) 0 10 ^3/uL (0-0.2); Basophils % (auto) 0.5 % (0.0-2.0); Eosinophils # (auto) 0.3 10 ^3/uL (0-0.8); Eosinophils % (auto) 3.8 % (0.0-7.0); Hematocrit 32.8 % (41.0-53.0); Hemoglobin 10.9 g/dL (13.5-17.5); Lymphocytes # (auto) 1.5 10 ^3/uL (0.4-5.4); Lymphocytes % (auto) 21.2 % (10.0-50.0); Mean Corpuscular Hemoglobin 30.1 pg (28.0-32.0); Mean Corpuscular Hgb Conc. 33.1 g/dL (32.0-36.0); Mean Corpuscular Volume 90.8 fL (80.0-100.0); Monocytes # (auto) 0.7 10 ^3/uL (0-1.3); Monocytes % (auto) 10.1 % (0.0-12.0); Neutrophils # (auto) 4.6 10 ^3/uL (1.6-8.6); Neutrophils % (auto) 64.4 % (37.0-80.0); Nucleated Red Blood Cells % 0.1 %; Red Blood Cells 3.61 10^6/uL (4.5-5.90); Red Cell Distribution Width 14.1 % (11.8-14.3); White Blood Cell 7.1 10^3/uL (4.4-10.8)
[2022-10-17 07:24] LABS: INR 1.08 (0.9-1.15)
[2022-10-17 07:27] LABS: Potassium 4.8 mmol/L (3.5-5.1)
[2022-10-17 07:33] LABS: Albumin 2.8 g/dL (3.4-5.0); BUN/Creatinine Ratio 16.2; Bilirubin, Total 0.4 mg/dL (0.2-1.0); Calcium 8.2 mg/dL (8.5-10.1); Total Protein 6.4 g/dL (6.4-8.2)
[2022-10-17] MEDS ORDERED: fentaNYL CITRATE 100 MCG/2 ML VL ONE (09:39)
[2022-10-17] MEDS ORDERED: HEPARIN SODIUM (PORCINE) 5000 UNITS/ML 1ML VIAL ONE (09:39)
[2022-10-17] MEDS ORDERED: MIDAZOLAM HCL 2MG/2ML 2ml VIAL (1mg/ml) ONE (09:39)
[2022-10-17] MEDS ORDERED: LIDOCAINE 2%HCL (LOCAL ANESTH.) INJ 20ML MDV ONE (09:47)
[2022-10-17] MEDS: ONDANSETRON HCL 4 MG/2 ML VIAL IV PRN (11:22)
[2022-10-17] MEDS: amLODIPine BESYLATE 5 MG TAB PO SCH (11:59)
[2022-10-17] MEDS: METOPROLOL TARTRATE 50 MG TAB PO SCH ×2 (12:00→22:12)
[2022-10-17] MEDS ORDERED: SODIUM CHL 0.9% 1000 ML BAG XX ONE (12:15)
[2022-10-17] MEDS ORDERED: EPOETIN ALFA-EPBX 10,000 UNIT/1ML VIAL SC ONE (21:00)
[2022-10-17] MEDS: INSULIN LANTUS (GLARGINE) 1 /0.01ml (100units/ml) SC SCH (21:29)
[2022-10-17] MEDS: DOXAZOSIN MESYL 2 MG TAB PO SCH (22:12)
[2022-10-18 05:00] VITALS: BP 137/66
[2022-10-18] MEDS: ACCU-CHEK COMFORT CURVE STRIP VI SCH ×4 (05:51→22:22)
[2022-10-18] MEDS: InsuLIN REG 1unit/0.01ml Soln (100units/ml) SC SCH ×4 (05:51→22:00)
[2022-10-18] MEDS: hydrALAZINE HCL 25 MG TAB PO SCH ×3 (06:17→22:23)
[2022-10-18] MEDS: SODIUM BICARBONATE 650 MG TAB PO SCH ×3 (06:18→22:23)
[2022-10-18 07:52] LABS: Basophils # (auto) 0 10 ^3/uL (0-0.2); Basophils % (auto) 0.6 % (0.0-2.0); Eosinophils # (auto) 0.2 10 ^3/uL (0-0.8); Eosinophils % (auto) 3.3 % (0.0-7.0); Hematocrit 33.6 % (41.0-53.0); Hemoglobin 10.7 g/dL (13.5-17.5); Lymphocytes # (auto) 1.2 10 ^3/uL (0.4-5.4); Mean Corpuscular Hemoglobin 29.4 pg (28.0-32.0); Mean Corpuscular Hgb Conc. 31.8 g/dL (32.0-36.0); Mean Corpuscular Volume 92.4 fL (80.0-100.0); Monocytes # (auto) 0.9 10 ^3/uL (0-1.3); Monocytes % (auto) 11.9 % (0.0-12.0); Neutrophils # (auto) 4.9 10 ^3/uL (1.6-8.6); Neutrophils % (auto) 68.2 % (37.0-80.0); Red Blood Cells 3.64 10^6/uL (4.5-5.90); Red Cell Distribution Width 14.3 % (11.8-14.3); White Blood Cell 7.2 10^3/uL (4.4-10.8)
[2022-10-18 08:35] LABS: Albumin 2.8 g/dL (3.4-5.0); Calcium 8.1 mg/dL (8.5-10.1); Potassium 4.4 mmol/L (3.5-5.1)
[2022-10-18 08:48] LABS: Bilirubin, Total 0.3 mg/dL (0.2-1.0); Total Protein 6.6 g/dL (6.4-8.2)
[2022-10-18 09:03] VITALS: BP 149/57
[2022-10-18] MEDS: METOPROLOL TARTRATE 50 MG TAB PO SCH ×2 (09:32→22:23)
[2022-10-18] MEDS: amLODIPine BESYLATE 5 MG TAB PO SCH (09:32)
[2022-10-18 13:00] VITALS: BP 151/44
[2022-10-18 17:14] VITALS: BP 150/53
[2022-10-18 22:00] VITALS: BP 142/56
[2022-10-18] MEDS: INSULIN LANTUS (GLARGINE) 1 /0.01ml (100units/ml) SC SCH (22:00)
[2022-10-18] MEDS: DOXAZOSIN MESYL 2 MG TAB PO SCH (22:23)
[2022-10-19 05:00] VITALS: BP 154/58
[2022-10-19] MEDS: ACCU-CHEK COMFORT CURVE STRIP VI SCH ×4 (06:23→21:59)
[2022-10-19] MEDS: InsuLIN REG 1unit/0.01ml Soln (100units/ml) SC SCH ×4 (06:23→22:03)
[2022-10-19] MEDS: hydrALAZINE HCL 25 MG TAB PO SCH ×3 (06:46→21:58)
[2022-10-19] MEDS: SODIUM BICARBONATE 650 MG TAB PO SCH ×3 (06:46→21:58)
[2022-10-19 09:10] VITALS: BP 160/53
[2022-10-19] MEDS: amLODIPine BESYLATE 5 MG TAB PO SCH (09:21)
[2022-10-19] MEDS: METOPROLOL TARTRATE 50 MG TAB PO SCH ×2 (09:21→21:59)
[2022-10-19 10:25] LABS: Basophils # (auto) 0.1 10 ^3/uL (0-0.2); Basophils % (auto) 0.7 % (0.0-2.0); Eosinophils # (auto) 0.2 10 ^3/uL (0-0.8); Eosinophils % (auto) 2.8 % (0.0-7.0); Hematocrit 33.2 % (41.0-53.0); Hemoglobin 10.9 g/dL (13.5-17.5); Lymphocytes # (auto) 1.5 10 ^3/uL (0.4-5.4); Lymphocytes % (auto) 20.3 % (10.0-50.0); Mean Corpuscular Hemoglobin 30.1 pg (28.0-32.0); Mean Corpuscular Volume 91.2 fL (80.0-100.0); Monocytes # (auto) 0.9 10 ^3/uL (0-1.3); Monocytes % (auto) 12.2 % (0.0-12.0); Neutrophils # (auto) 4.8 10 ^3/uL (1.6-8.6); Red Blood Cells 3.64 10^6/uL (4.5-5.90); Red Cell Distribution Width 14.1 % (11.8-14.3); White Blood Cell 7.5 10^3/uL (4.4-10.8)
[2022-10-19 10:43] LABS: Albumin 2.7 g/dL (3.4-5.0); Potassium 4.4 mmol/L (3.5-5.1)
[2022-10-19 10:46] LABS: BUN/Creatinine Ratio 12.9; Bilirubin, Total 0.3 mg/dL (0.2-1.0)
[2022-10-19] MEDS: hydrALAZINE HCL 20 MG/ML VL IV PRN (11:56)
[2022-10-19 13:00] VITALS: BP 175/65
[2022-10-19] MEDS ORDERED: SODIUM CHL 0.9% 1000 ML BAG XX ONE (13:45)
[2022-10-19 16:40] VITALS: BP 165/81
[2022-10-19] MEDS ORDERED: EPOETIN ALFA-EPBX 4,000 UNIT/ML VIAL SC ONE (21:00)
[2022-10-19] MEDS: DOXAZOSIN MESYL 2 MG TAB PO SCH (21:59)
[2022-10-19 22:00] VITALS: BP 151/73
[2022-10-19] MEDS: INSULIN LANTUS (GLARGINE) 1 /0.01ml (100units/ml) SC SCH (22:03)
[2022-10-20 04:30] VITALS: BP 133/59
[2022-10-20 05:54] LABS: Albumin 2.7 g/dL (3.4-5.0); BUN/Creatinine Ratio 9.7; Calcium 7.9 mg/dL (8.5-10.1); Potassium 4.3 mmol/L (3.5-5.1)
[2022-10-20 05:57] LABS: Bilirubin, Total 0.3 mg/dL (0.2-1.0); Total Protein 5.9 g/dL (6.4-8.2)
[2022-10-20 06:00] LABS: Basophils # (auto) 0 10 ^3/uL (0-0.2); Basophils % (auto) 0.4 % (0.0-2.0); Eosinophils # (auto) 0.2 10 ^3/uL (0-0.8); Eosinophils % (auto) 3.4 % (0.0-7.0); Hematocrit 33.7 % (41.0-53.0); Hemoglobin 10.8 g/dL (13.5-17.5); Lymphocytes # (auto) 1.1 10 ^3/uL (0.4-5.4); Lymphocytes % (auto) 17.2 % (10.0-50.0); Mean Corpuscular Hemoglobin 29.2 pg (28.0-32.0); Mean Corpuscular Hgb Conc. 32.1 g/dL (32.0-36.0); Monocytes % (auto) 14.7 % (0.0-12.0); Neutrophils # (auto) 4.2 10 ^3/uL (1.6-8.6); Neutrophils % (auto) 64.3 % (37.0-80.0); Nucleated Red Blood Cells % 0.1 %; Red Cell Distribution Width 13.9 % (11.8-14.3); White Blood Cell 6.6 10^3/uL (4.4-10.8)
[2022-10-20] MEDS: ACCU-CHEK COMFORT CURVE STRIP VI SCH ×4 (06:11→22:41)
[2022-10-20] MEDS: InsuLIN REG 1unit/0.01ml Soln (100units/ml) SC SCH ×4 (06:11→22:48)
[2022-10-20] MEDS: SODIUM BICARBONATE 650 MG TAB PO SCH ×3 (06:11→22:39)
[2022-10-20] MEDS: hydrALAZINE HCL 25 MG TAB PO SCH ×3 (06:11→22:34)
[2022-10-20 09:00] VITALS: BP 150/57
[2022-10-20] MEDS: METOPROLOL TARTRATE 50 MG TAB PO SCH ×2 (10:00→22:40)
[2022-10-20] MEDS: amLODIPine BESYLATE 5 MG TAB PO SCH (10:36)
[2022-10-20] MEDS: CALCIUM ACETATE 667 MG CAP PO SCH ×2 (12:00→18:30)
[2022-10-20 13:00] VITALS: BP 151/46
[2022-10-20] MEDS ORDERED: ERGOCALCIFEROL 50,000 UNIT(1.25MG) CAP PO SCH (16:30)
[2022-10-20 17:00] VITALS: BP 161/60
[2022-10-20 17:30] VITALS: BP 144/56
[2022-10-20 22:00] VITALS: BP 146/58
[2022-10-20] MEDS: INSULIN LANTUS (GLARGINE) 1 /0.01ml (100units/ml) SC SCH (22:00)
[2022-10-20] MEDS: DOXAZOSIN MESYL 2 MG TAB PO SCH (22:33)
[2022-10-21 05:00] VITALS: BP 121/50
[2022-10-21] MEDS: SODIUM BICARBONATE 650 MG TAB PO SCH (05:16)
[2022-10-21] MEDS: hydrALAZINE HCL 25 MG TAB PO SCH (05:17)
[2022-10-21] MEDS ORDERED: SODIUM CHL 0.9% 1000 ML BAG XX ONE (07:00)
[2022-10-21] MEDS: InsuLIN REG 1unit/0.01ml Soln (100units/ml) SC SCH (07:00)
[2022-10-21] MEDS: ACCU-CHEK COMFORT CURVE STRIP VI SCH (07:06)
[2022-10-21 08:12] VITALS: BP 129/61
[2022-10-21] MEDS: CALCIUM ACETATE 667 MG CAP PO SCH (08:23)
[2022-10-21 08:59] LABS: Hematocrit 33.8 % (41.0-53.0); Hemoglobin 11.2 g/dL (13.5-17.5)
[2022-10-21 09:00] VITALS: BP 129/61
[2022-10-21] MEDS: ONDANSETRON HCL 4 MG/2 ML VIAL IV PRN (09:29)
[2022-10-21] MEDS: METOPROLOL TARTRATE 50 MG TAB PO SCH (10:00)
[2022-10-21] MEDS: amLODIPine BESYLATE 5 MG TAB PO SCH (10:00)
[2022-10-21] MEDS ORDERED: EPOETIN ALFA-EPBX 10,000 UNIT/1ML VIAL SC ONE (21:00)
== END 2022-10-21 11:51 | disposition home or self-care (01) | DRG 673 ==
LOC: ER 12:47 → TELE 17:48 → TELE-WESTW 10-13 08:07
PROVIDERS: ADMIT Hospitalist; ATTEND Internal Medicine
PROC: 0JH63XZ Insertion of Tunneled Vascular Access Device into Chest Subcutaneous Tissue and Fascia, Percutaneous Approach (ICD-10-PCS; principal; 2022-10-17)
PROC: 02H633Z Insertion of Infusion Device into Right Atrium, Percutaneous Approach (ICD-10-PCS; 2022-10-17)
PROC: B548ZZA Ultrasonography of Superior Vena Cava, Guidance (ICD-10-PCS; 2022-10-17)
PROC: B5181ZA Fluoroscopy of Superior Vena Cava using Low Osmolar Contrast, Guidance (ICD-10-PCS; 2022-10-17)
PROC: 5A1D70Z Performance of Urinary Filtration, Intermittent, Less than 6 Hours Per Day (ICD-10-PCS; 2022-10-17)
PROC: 5A1D70Z Performance of Urinary Filtration, Intermittent, Less than 6 Hours Per Day (ICD-10-PCS; 2022-10-19)
PROC: 5A1D70Z Performance of Urinary Filtration, Intermittent, Less than 6 Hours Per Day (ICD-10-PCS; 2022-10-20)
DX: N17.9 Acute kidney failure, unspecified (principal); I50.43 Acute on chronic combined systolic (congestive) and diastolic (congestive) heart failure; I13.2 Hypertensive heart and chronic kidney disease with heart failure and with stage 5 chronic kidney disease, or end stage renal disease; N39.0 Urinary tract infection, site not specified; Z20.822 Contact with and (suspected) exposure to COVID-19; N18.6 End stage renal disease; F17.210 Nicotine dependence, cigarettes, uncomplicated; I25.10 Atherosclerotic heart disease of native coronary artery without angina pectoris; E87.5 Hyperkalemia; E11.65 Type 2 diabetes mellitus with hyperglycemia; K31.9 Disease of stomach and duodenum, unspecified; E11.21 Type 2 diabetes mellitus with diabetic nephropathy; Z99.2 Dependence on renal dialysis; Z87.442 Personal history of urinary calculi; Z83.3 Family history of diabetes mellitus
CPT/HCPCS: 36415; 71045; 74176; 76942; 80048; 80053; 80074; 81001; 82306; 82962; 83735; 83970; 84100; 84132; 85014; 85018; 85025; 85610; 85730; 87081; 87426; 90935; 93005; 99152; 99291; G0378; J0696; J1642; J1815; J2250; J2405

== ENCOUNTER → 2023-01-03 | Outpatient (CLI) | payer MEDICARE, MEDICAID ==
[~2023-01-03] MED LIST changes: -AMLO-489 PO; -BENA40TA8 PO; -CAR125T OR; +DOXA1TAB28 PO; +ESOM20CA PO; +HYDR-4798 PO; -ISOS60TA24 PO; +LOSA25TA38 PO; +SODI325T PO
== END | disposition home or self-care (01) ==
LOC: Rad HDHVI 13:41
PROVIDERS: ATTEND Internal Medicine Cardiovascular Disease
DX: I11.9 Hypertensive heart disease without heart failure (principal); R00.1 Bradycardia, unspecified
CPT/HCPCS: 93306

== ENCOUNTER 2023-01-06 20:16 | Emergency (ER) | payer MEDICARE, MEDICAID ==
[~2023-01-06] VITALS: Ht 170.2 cm; Wt 90.9 kg
[~2023-01-06 20:16] MED LIST changes: -HYDR-4798 PO
[2023-01-06 21:30] LABS: Basophils # (auto) 0 10 ^3/uL (0-0.2); Basophils % (auto) 0.5 % (0.0-2.0); Eosinophils # (auto) 0.2 10 ^3/uL (0-0.8); Eosinophils % (auto) 2.9 % (0.0-7.0); Hemoglobin 13.4 g/dL (13.5-17.5); Lymphocytes # (auto) 1.8 10 ^3/uL (0.4-5.4); Lymphocytes % (auto) 23.2 % (10.0-50.0); Mean Corpuscular Hemoglobin 29.8 pg (28.0-32.0); Mean Corpuscular Hgb Conc. 32.6 g/dL (32.0-36.0); Mean Corpuscular Volume 91.3 fL (80.0-100.0); Monocytes # (auto) 0.9 10 ^3/uL (0-1.3); Monocytes % (auto) 11.8 % (0.0-12.0); Neutrophils # (auto) 4.8 10 ^3/uL (1.6-8.6); Neutrophils % (auto) 61.6 % (37.0-80.0); Nucleated Red Blood Cells % 0.1 %; Red Blood Cells 4.49 10^6/uL (4.5-5.90); Red Cell Distribution Width 16.5 % (11.8-14.3); White Blood Cell 7.8 10^3/uL (4.4-10.8)
[2023-01-06 21:52] LABS: Albumin 3.1 g/dL (3.4-5.0); BUN/Creatinine Ratio 10.2 (10.0-20.0); Potassium 4.4 mmol/L (3.5-5.1)
[2023-01-06 21:54] LABS: Bilirubin, Total 0.2 mg/dL (0.2-1.0); Total Protein 7.2 g/dL (6.4-8.2)
[2023-01-06] MEDS ORDERED: HYDROcodone-ACET 10/325MG TAB PO ONE (22:15)
[2023-01-07] MEDS ORDERED: HYDR-4798 PO (01:21)
[2023-01-07 03:35] VITALS: BP 159/75
== END 2023-01-07 02:13 | disposition home or self-care (01) ==
LOC: ER 20:16
DX: M54.6 Pain in thoracic spine (principal); I12.9 Hypertensive chronic kidney disease with stage 1 through stage 4 chronic kidney disease, or unspecified chronic kidney disease; E11.22 Type 2 diabetes mellitus with diabetic chronic kidney disease; N18.9 Chronic kidney disease, unspecified; E78.5 Hyperlipidemia, unspecified; F17.210 Nicotine dependence, cigarettes, uncomplicated; Z87.442 Personal history of urinary calculi
CPT/HCPCS: 36415; 72070; 80053; 84484; 85025; 93005

== ENCOUNTER → 2023-01-08 | Outpatient (CLI) | payer MEDICARE, MEDICAID ==
[~2023-01-08] VITALS: Ht 170.2 cm; Wt 99.8 kg
[~2023-01-08] MED LIST changes: +ADENOSINE 84 MG in GIVE UN-DILUTED 0 ML IV ONE; +ADENOSINE 90 MG/30 ML INJ IV ONE; +HYDR-4798 PO
== END | disposition home or self-care (01) ==
LOC: Rad HDHVI 13:25
PROVIDERS: ATTEND Internal Medicine Cardiovascular Disease
DX: I12.0 Hypertensive chronic kidney disease with stage 5 chronic kidney disease or end stage renal disease (principal); E11.22 Type 2 diabetes mellitus with diabetic chronic kidney disease; N18.6 End stage renal disease; E78.5 Hyperlipidemia, unspecified; I25.2 Old myocardial infarction; F17.210 Nicotine dependence, cigarettes, uncomplicated; Z99.2 Dependence on renal dialysis; Z87.442 Personal history of urinary calculi; Z86.73 Personal history of transient ischemic attack (TIA), and cerebral infarction without residual deficits
CPT/HCPCS: 78452; 93005; 96374; 96375; A9500; J0153

== ENCOUNTER → 2023-02-21 | Outpatient (CLI) | payer MEDICARE, MEDICAID ==
[~2023-02-21] MED LIST changes: -ADENOSINE 84 MG in GIVE UN-DILUTED 0 ML IV ONE; -ADENOSINE 90 MG/30 ML INJ IV ONE; +LOSA25TA15 PO; -LOSA25TA38 PO
[2023-02-21 11:00] VITALS: BP 168/59
[2023-02-21 11:25] VITALS: BP 174/69
== END | disposition home or self-care (01) ==
LOC: Rad HDHVI 10:49
PROVIDERS: ATTEND Internal Medicine Cardiovascular Disease
DX: Z01.818 Encounter for other preprocedural examination (principal); I13.0 Hypertensive heart and chronic kidney disease with heart failure and stage 1 through stage 4 chronic kidney disease, or unspecified chronic kidney disease; I50.43 Acute on chronic combined systolic (congestive) and diastolic (congestive) heart failure; N18.6 End stage renal disease; I25.5 Ischemic cardiomyopathy; R94.31 Abnormal electrocardiogram [ECG] [EKG]
CPT/HCPCS: 36415; 71046; 80048; 85025; 85610; 85730; 93005; G0463

== ENCOUNTER 2023-03-21 07:21 | Inpatient (IN) | payer MEDICARE, MEDICAID ==
[~2023-03-21] VITALS: Ht 170.2 cm; Wt 103.3 kg
[2023-03-21 08:04] LABS: Basophils # (auto) 0.1 10 ^3/uL (0-0.2); Basophils % (auto) 0.8 % (0.0-2.0); Eosinophils # (auto) 0.1 10 ^3/uL (0-0.8); Eosinophils % (auto) 1.2 % (0.0-7.0); Hematocrit 36.4 % (41.0-53.0); Hemoglobin 12.3 g/dL (13.5-17.5); Lymphocytes # (auto) 1.7 10 ^3/uL (0.4-5.4); Lymphocytes % (auto) 18.5 % (10.0-50.0); Mean Corpuscular Hemoglobin 30.7 pg (28.0-32.0); Mean Corpuscular Hgb Conc. 33.8 g/dL (32.0-36.0); Mean Corpuscular Volume 90.8 fL (80.0-100.0); Monocytes # (auto) 0.8 10 ^3/uL (0-1.3); Monocytes % (auto) 8.4 % (0.0-12.0); Neutrophils # (auto) 6.4 10 ^3/uL (1.6-8.6); Neutrophils % (auto) 71.1 % (37.0-80.0); Nucleated Red Blood Cells % 0.1 %; Red Blood Cells 4.01 10^6/uL (4.5-5.90); Red Cell Distribution Width 14.7 % (11.8-14.3)
[2023-03-21 08:18] LABS: Albumin 3.6 g/dL (3.4-5.0); Calcium 8.8 mg/dL (8.5-10.1); Magnesium 2.8 mg/dL (1.6-2.6); Potassium 4.7 mmol/L (3.5-5.1)
[2023-03-21 08:20] LABS: INR 1.02 (0.9-1.15)
[2023-03-21 08:21] LABS: Bilirubin, Total 0.3 mg/dL (0.2-1.0); Total Protein 7.5 g/dL (6.4-8.2)
[2023-03-21 08:22] LABS: BUN/Creatinine Ratio 11.1 (10.0-20.0)
[2023-03-21] MEDS ORDERED: ENOXAPARIN SOD 100 MG/1 ML SYRINGE SC ONE (08:30)
[2023-03-21 08:33] LABS: Urine Bacteria NONE SEEN /hpf (None Seen); Urine Blood 1+ /uL (Negative); Urine Hyaline Cast FEW /lpf (0 - 2); Urine Specific Gravity 1.014 (1.001-1.035); Urine WBC 4 /hpf (0 - 3)
[2023-03-21] MEDS ORDERED: NITROGLYCERIN 0.4 MG SL TAB SL PRN (10:30)
[2023-03-21] MEDS ORDERED: HYDROcodone-ACET 5/325MG TAB PO PRN (10:30)
[2023-03-21] MEDS ORDERED: MORPHINE SULFATE INJ 2 MG/ml SYRG IV PRN (10:30)
[2023-03-21] MEDS ORDERED: DOCUSATE SOD 100 MG CAP PO PRN (10:30)
[2023-03-21] MEDS ORDERED: ACETAMINOPHEN 325 MG TAB PO PRN (10:30)
[2023-03-21] MEDS ORDERED: DEXTROSE (50%) 50ML SYRG IV PRN (10:45)
[2023-03-21] MEDS ORDERED: hydrALAZINE HCL 20 MG/ML VL IV PRN (10:45)
[2023-03-21] MEDS ORDERED: FERR1TAB17 PO (12:28)
[2023-03-21] MEDS ORDERED: SACU1TAB7 PO (12:28)
[2023-03-21] MEDS ORDERED: HYDR-4798 PO (12:28)
[2023-03-21] MEDS: ACCU-CHEK COMFORT CURVE STRIP VI SCH ×3 (12:28→22:02)
[2023-03-21] MEDS ORDERED: VERI5TAB PO (12:28)
[2023-03-21] MEDS: InsuLIN REG 1unit/0.01ml Soln (100units/ml) SC SCH ×2 (12:28→17:57)
[2023-03-21] MEDS ORDERED: SODIUM CHLOR 0.9% PF (SALINE LOCK) 10ML VIAL/SYR IV SCH (14:00)
[2023-03-21] MEDS: SODIUM CHLOR 0.9% PF (SALINE LOCK) 10ML VIAL/SYR IV SCH ×2 (14:03→22:08)
[2023-03-21] MEDS: INSULIN 70/30 1unit/0.01ml Susp (100units/ml) SC SCH (17:58)
[2023-03-21] MEDS ORDERED: HEPARIN DRIP/D5W 100UNITS/ML 250 ML IV SCH (18:00)
[2023-03-21] MEDS ORDERED: InsuLIN REG 1unit/0.01ml Soln (100units/ml) SC SCH (22:00)
[2023-03-21] MEDS: DOXAZOSIN MESYL 2 MG TAB PO SCH (22:00)
[2023-03-21] MEDS: FUROSEMIDE 40 MG TAB PO SCH (22:07)
[2023-03-21] MEDS: METOPROLOL TARTRATE 50 MG TAB PO SCH (22:08)
[2023-03-21 23:22] VITALS: BP 155/62
[2023-03-22] VITALS (9 sets, daily range): BP systolic 109–156; BP diastolic 62–78
[2023-03-22] MEDS: ACCU-CHEK COMFORT CURVE STRIP VI SCH ×4 (05:17→22:38)
[2023-03-22] MEDS: SODIUM CHLOR 0.9% PF (SALINE LOCK) 10ML VIAL/SYR IV SCH ×3 (05:17→22:43)
[2023-03-22] MEDS: InsuLIN REG 1unit/0.01ml Soln (100units/ml) SC SCH ×4 (05:20→22:43)
[2023-03-22] MEDS: INSULIN 70/30 1unit/0.01ml Susp (100units/ml) SC SCH ×2 (07:00→17:00)
[2023-03-22] MEDS: PANTOPRAZOLE 40 MG/10 ML VIAL INJ IV SCH (09:28)
[2023-03-22] MEDS ORDERED: SODIUM CHL 0.9% 1000 ML BAG XX ONE (09:45)
[2023-03-22] MEDS: METOPROLOL TARTRATE 50 MG TAB PO SCH ×2 (09:59→22:37)
[2023-03-22] MEDS: FUROSEMIDE 40 MG TAB PO SCH ×2 (09:59→22:37)
[2023-03-22] MEDS ORDERED: LOSARTAN POTASSIUM 25 MG TAB PO SCH (10:00)
[2023-03-22] MEDS ORDERED: DEXTROSE (50%) 50ML SYRG IV PRN (13:15)
[2023-03-22 13:42] LABS: INR 1.11 (0.9-1.15)
[2023-03-22 13:43] LABS: Partial Thromboplastin Time 104.8 SEC (24.5-34.5)
[2023-03-22] MEDS ORDERED: IOHEXOL 350 MG/ML 100ML IJ ONE (14:48)
[2023-03-22] MEDS ORDERED: LIDOCAINE 2%HCL (LOCAL ANESTH.) INJ 20ML MDV ONE (14:48)
[2023-03-22] MEDS ORDERED: ONDANSETRON HCL 4 MG/2 ML VIAL ONE (15:29)
[2023-03-22] MEDS ORDERED: SODIUM CHL 0.9% 0 ML ONE (15:33)
[2023-03-22] MEDS ORDERED: ANGIOMAX 250 MG VIAL IV ONE (15:33)
[2023-03-22] MEDS ORDERED: fentaNYL CITRATE 100 MCG/2 ML VL ONE (15:33)
[2023-03-22] MEDS ORDERED: IODIXANOL 320MG/ML 100ML BTL IV ONE (15:38)
[2023-03-22] MEDS ORDERED: METOCLOPRAMIDE HCL 5MG/ml INJ 2ml VIAL ONE (15:58)
[2023-03-22] MEDS ORDERED: methylPREDNISolone SOD SUCC 125 MG/2 ML VL ONE (15:58)
[2023-03-22] MEDS ORDERED: methylPREDNISolone SOD SUCC 40 MG/ML VL IV ONE (16:00)
[2023-03-22] MEDS ORDERED: METOCLOPRAMIDE HCL 5MG/ml INJ 2ml VIAL IV ONE (16:00)
[2023-03-22] MEDS ORDERED: EPOETIN ALFA-EPBX 4,000 UNIT/ML VIAL SC ONE (21:00)
[2023-03-22] MEDS: VERQUVO 2.5 MG PO SCH (22:00)
[2023-03-22] MEDS: DOXAZOSIN MESYL 2 MG TAB PO SCH (22:37)
[2023-03-22] MEDS: METOCLOPRAMIDE HCL 5MG/ml INJ 2ml VIAL IV PRN (22:44)
[2023-03-23 05:00] VITALS: BP_SYST 107; BP_SYST 118; BP_DIAS 51; BP_DIAS 55
[2023-03-23] MEDS: ACCU-CHEK COMFORT CURVE STRIP VI SCH ×4 (06:34→22:03)
[2023-03-23] MEDS: SODIUM CHLOR 0.9% PF (SALINE LOCK) 10ML VIAL/SYR IV SCH ×3 (06:35→22:00)
[2023-03-23] MEDS: InsuLIN REG 1unit/0.01ml Soln (100units/ml) SC SCH ×4 (06:40→22:13)
[2023-03-23] MEDS: INSULIN 70/30 1unit/0.01ml Susp (100units/ml) SC SCH ×2 (06:41→16:43)
[2023-03-23 09:06] VITALS: BP 141/56
[2023-03-23] MEDS: VERQUVO 2.5 MG PO SCH ×2 (10:00→22:01)
[2023-03-23] MEDS ORDERED: LOSARTAN POTASSIUM 50 MG TAB PO SCH (10:00)
[2023-03-23] MEDS: PANTOPRAZOLE 40 MG/10 ML VIAL INJ IV SCH (10:14)
[2023-03-23] MEDS: ASPirin 81 mg TAB PO SCH (10:14)
[2023-03-23] MEDS: METOPROLOL TARTRATE 50 MG TAB PO SCH ×2 (10:15→22:02)
[2023-03-23] MEDS: FUROSEMIDE 40 MG TAB PO SCH ×2 (10:15→22:02)
[2023-03-23 12:30] VITALS: BP 120/56
[2023-03-23] MEDS ORDERED: SUCRALFATE 1 GM/10 ML ORAL SUSP PO ONE (14:00)
[2023-03-23] MEDS: SUCRALFATE 1 GM/10 ML ORAL SUSP PO SCH (16:43)
[2023-03-23 17:21] VITALS: BP 113/62
[2023-03-23 20:00] VITALS: BP 121/48
[2023-03-23 22:00] VITALS: BP 121/78
[2023-03-23] MEDS: METOCLOPRAMIDE HCL 5MG/ml INJ 2ml VIAL IV PRN (22:00)
[2023-03-23] MEDS: DOXAZOSIN MESYL 2 MG TAB PO SCH (22:03)
[2023-03-24 05:00] VITALS: BP 116/51
[2023-03-24] MEDS: ACCU-CHEK COMFORT CURVE STRIP VI SCH ×2 (06:11→11:30)
[2023-03-24] MEDS: SUCRALFATE 1 GM/10 ML ORAL SUSP PO SCH ×2 (06:11→11:32)
[2023-03-24] MEDS: InsuLIN REG 1unit/0.01ml Soln (100units/ml) SC SCH ×2 (06:11→11:30)
[2023-03-24] MEDS: INSULIN 70/30 1unit/0.01ml Susp (100units/ml) SC SCH (06:11)
[2023-03-24] MEDS: SODIUM CHLOR 0.9% PF (SALINE LOCK) 10ML VIAL/SYR IV SCH (06:11)
[2023-03-24] MEDS: FUROSEMIDE 40 MG TAB PO SCH (10:00)
[2023-03-24] MEDS: METOPROLOL TARTRATE 50 MG TAB PO SCH (10:00)
[2023-03-24] MEDS ORDERED: LOSARTAN POTASSIUM 50 MG TAB PO SCH (10:00)
[2023-03-24] MEDS: VERQUVO 2.5 MG PO SCH (10:00)
[2023-03-24] MEDS: ASPirin 81 mg TAB PO SCH (10:54)
[2023-03-24] MEDS: PANTOPRAZOLE 40 MG/10 ML VIAL INJ IV SCH (10:54)
[2023-03-24 11:23] VITALS: BP 136/61
[2023-03-24] MEDS ORDERED: PANT40TA2 PO (16:12)
[2023-03-24] MEDS ORDERED: SUCR1SUS26 PO (16:12)
== END 2023-03-24 12:20 | disposition home or self-care (01) | DRG 280 ==
LOC: ER 07:21 → TELE 10:32 → TELE-WESTW 22:02
PROVIDERS: ADMIT Internal Medicine; ATTEND Internal Medicine
PROC: 4A023N7 Measurement of Cardiac Sampling and Pressure, Left Heart, Percutaneous Approach (ICD-10-PCS; principal; 2023-03-22)
PROC: B2111ZZ Fluoroscopy of Multiple Coronary Arteries using Low Osmolar Contrast (ICD-10-PCS; 2023-03-22)
PROC: B2151ZZ Fluoroscopy of Left Heart using Low Osmolar Contrast (ICD-10-PCS; 2023-03-22)
PROC: 5A1D70Z Performance of Urinary Filtration, Intermittent, Less than 6 Hours Per Day (ICD-10-PCS; 2023-03-22)
DX: I21.4 Non-ST elevation (NSTEMI) myocardial infarction (principal); I50.41 Acute combined systolic (congestive) and diastolic (congestive) heart failure; N18.6 End stage renal disease; I13.2 Hypertensive heart and chronic kidney disease with heart failure and with stage 5 chronic kidney disease, or end stage renal disease; E11.22 Type 2 diabetes mellitus with diabetic chronic kidney disease; I16.0 Hypertensive urgency; Z99.2 Dependence on renal dialysis; E11.43 Type 2 diabetes mellitus with diabetic autonomic (poly)neuropathy; F17.210 Nicotine dependence, cigarettes, uncomplicated; E78.5 Hyperlipidemia, unspecified; G47.33 Obstructive sleep apnea (adult) (pediatric); K31.84 Gastroparesis; E11.42 Type 2 diabetes mellitus with diabetic polyneuropathy; I25.10 Atherosclerotic heart disease of native coronary artery without angina pectoris; E66.9 Obesity, unspecified; Z68.35 Body mass index [BMI] 35.0-35.9, adult; Z80.9 Family history of malignant neoplasm, unspecified; Z83.3 Family history of diabetes mellitus; Z86.73 Personal history of transient ischemic attack (TIA), and cerebral infarction without residual deficits; Z87.442 Personal history of urinary calculi; Z95.5 Presence of coronary angioplasty implant and graft; Z79.4 Long term (current) use of insulin
CPT/HCPCS: 36415; 71045; 80053; 81001; 82962; 83690; 83735; 83880; 84484; 85025; 85610; 85730; 90935; 93005; 93458; 96372; 99152; C9113; G0378; J1642; J1815; J2405; Q9967

== ENCOUNTER 2023-07-21 06:05 | Emergency (ER) | payer MEDICARE, MEDICAID ==
[~2023-07-21] VITALS: Ht 170.2 cm; Wt 95.5 kg
[~2023-07-21 06:05] MED LIST changes: +FERR1TAB17 PO; +PANT40TA2 PO; +SACU1TAB7 PO; +SUCR1SUS26 PO; +VERI5TAB PO
[2023-07-21] MEDS ORDERED: MORPHINE SULFATE 4 MG/ML SYR/VIAL IV ONE (07:15)
[2023-07-21] MEDS ORDERED: ONDANSETRON HCL 4 MG/2 ML VIAL IV ONE (07:15)
[2023-07-21 08:05] LABS: Basophils # (auto) 0 10 ^3/uL (0-0.2); Basophils % (auto) 0.5 % (0.0-2.0); Eosinophils # (auto) 0.2 10 ^3/uL (0-0.8); Eosinophils % (auto) 2.4 % (0.0-7.0); Hematocrit 34.2 % (41.0-53.0); Hemoglobin 11.1 g/dL (13.5-17.5); Lymphocytes # (auto) 1.3 10 ^3/uL (0.4-5.4); Mean Corpuscular Hemoglobin 30.5 pg (28.0-32.0); Mean Corpuscular Hgb Conc. 32.4 g/dL (32.0-36.0); Mean Corpuscular Volume 94.4 fL (80.0-100.0); Monocytes # (auto) 0.9 10 ^3/uL (0-1.3); Monocytes % (auto) 8.9 % (0.0-12.0); Neutrophils # (auto) 7.6 10 ^3/uL (1.6-8.6); Neutrophils % (auto) 75.2 % (37.0-80.0); Red Blood Cells 3.62 10^6/uL (4.5-5.90); Red Cell Distribution Width 14.8 % (11.8-14.3); White Blood Cell 10.1 10^3/uL (4.4-10.8)
[2023-07-21 08:20] LABS: INR 1.15 (0.9-1.15); Partial Thromboplastin Time 33.5 SEC (24.5-34.5)
[2023-07-21 08:23] LABS: Alanine Aminotransferase 16 U/L (7-40); Alkaline Phosphatase 111 U/L (46-116); Anion Gap 11 (5-15); Aspartate Aminotransferase < 8 U/L (13-40); BUN/Creatinine Ratio 6.8 (10.0-20.0); Bilirubin, Total 0.3 mg/dL (0.2-1.0); Blood Urea Nitrogen 56 mg/dL (9-23); Calcium 8.6 mg/dL (8.5-10.1); Carbon Dioxide 27 mmol/L (20-30); Chloride 98 mmol/L (98-107); Glucose 223 mg/dL (74-106); Lactic Acid w/Reflex 2.1 mmol/L (0.4-2.0); Sodium 136 mmol/L (136-145); Total Protein 6.7 g/dL (5.7-8.2)
[2023-07-21 11:08] VITALS: TEMP 98.6
[2023-07-21 11:15] VITALS: BP 170/68
[2023-07-21 11:20] VITALS: PULSE 70; RESP 18; O2SAT 96
== END 2023-07-21 08:09 | disposition short-term general hospital (02) ==
LOC: ER 06:05
DX: M62.272 Nontraumatic ischemic infarction of muscle, left ankle and foot (principal); I12.9 Hypertensive chronic kidney disease with stage 1 through stage 4 chronic kidney disease, or unspecified chronic kidney disease; E11.22 Type 2 diabetes mellitus with diabetic chronic kidney disease; N18.9 Chronic kidney disease, unspecified; E78.5 Hyperlipidemia, unspecified; I25.10 Atherosclerotic heart disease of native coronary artery without angina pectoris; I25.2 Old myocardial infarction; F17.210 Nicotine dependence, cigarettes, uncomplicated; Z87.442 Personal history of urinary calculi; Z98.890 Other specified postprocedural states; Z79.1 Long term (current) use of non-steroidal anti-inflammatories (NSAID); Z79.899 Other long term (current) drug therapy
CPT/HCPCS: 36415; 71045; 80053; 83605; 83880; 84484; 85025; 85610; 85730; 87040; 93926; 96374; 96375; 99285; J2270; J2405